=== PATIENT | female | born 1950 | race Caucasian/White ===

== ENCOUNTER 2021-04-21 12:00 | Outpatient (RCR) | payer MEDICARE, OTHER, SELFPAY | END 2021-04-26 14:37 | disposition home or self-care (01) | LOC: HO.PT 12:00 | PROVIDERS: Visit Provider Family Medicine | DX: M72.2 Plantar fascial fibromatosis (principal) | CPT/HCPCS: 97033; 97035; 97110; 97140; 97161; 97535 ==

== ENCOUNTER 2023-02-21 10:42 | Outpatient (REF) | payer MEDICARE, OTHER, SELFPAY ==
--- NOTE | ~2023-02-21 | MM_ITS ---
EXAMINATION: MM SCREENING DIGITAL BREAST TOMOSYNTHESIS, BILATERAL CLINICAL INFORMATION: Screening. Asymptomatic. The lifetime risk of breast cancer based on the Tyrer-Cuzick Model is 3.1%. COMPARISON: Mammography: This study is compared with the only prior study [id number]. TECHNIQUE: Digital breast tomosynthesis is performed in both the craniocaudal and mediolateral oblique views along with computer-aided detection (CAD). Synthesized 2D images are generated from the tomosynthesis. FINDINGS: There are scattered areas of fibroglandular density (ACR BI-RADS breast composition Category b). There are no significant masses, abnormal calcifications, or other abnormalities. MM/MM tomosynthesis screening BI IMPRESSION: No mammographic evidence of malignancy. ASSESSMENT: BI-RADS BI-RADS 1 - Negative RECOMMENDATION: Routine annual mammography screening. 1 year F/U This examination should not preclude the clinical evaluation of a suspicious palpable abnormality. This patient's information was entered into a reminder system with a target due date for their next mammogram.
== END 2023-02-21 10:43 | disposition home or self-care (01) ==
LOC: HO.MAMMO 10:42
PROVIDERS: PCP Family Medicine; Visit Provider Family Medicine
DX: Z12.31 Encounter for screening mammogram for malignant neoplasm of breast (principal); Z13.820 Encounter for screening for osteoporosis; Z78.0 Asymptomatic menopausal state; M81.0 Age-related osteoporosis without current pathological fracture
CPT/HCPCS: 77063; 77067; 77080

== ENCOUNTER → 2023-02-21 10:45 | Outpatient (BNV) | payer MEDICARE, OTHER, SELFPAY | PROVIDERS: PCP Family Medicine; Visit Provider Radiology Diagnostic Radiology | DX: Z12.31 Encounter for screening mammogram for malignant neoplasm of breast (principal) | CPT/HCPCS: 77063; 77067 ==

== ENCOUNTER 2024-02-16 19:00 | Emergency (ER) | payer OTHER, SELFPAY ==
--- NOTE | ~2024-02-16 | XR_ITS ---
EXAMINATION: XR ribs RT min 3V w CXR1V XR hand wrist RT XR knee RT 2V CLINICAL INFORMATION: fall onto ribs, r/o fracture fall onto right knee COMPARISON: None. TECHNIQUE: PA view of the chest and multiple oblique views of the right ribs. AP, lateral, oblique and scaphoid views of the right wrist, 4 images. AP and lateral views of the right knee, 2 images. FINDINGS: Right Ribs: The lungs are well expanded. No focal consolidation, effusion, edema, or pneumothorax. The cardiomediastinal silhouette is within normal limits for technique. No acute osseous abnormality. No displaced rib fractures. Right wrist: No acute fracture. The carpal rows are appropriately aligned. Joint spaces are maintained. Alignment is anatomic. No erosions or soft tissue calcifications. Right knee: No evidence of acute fracture. Alignment is anatomic. No significant effusion or soft tissue swelling. Mild chondrocalcinosis. XR/XR ribs RT min 3V w CXR1V IMPRESSION: 1. No acute pulmonary disease. No displaced rib fractures. 2. No acute fracture or malalignment of the right wrist or right knee.
--- NOTE | ~2024-02-16 | XR_ITS ---
EXAMINATION: XR ribs RT min 3V w CXR1V XR hand wrist RT XR knee RT 2V CLINICAL INFORMATION: fall onto ribs, r/o fracture fall onto right knee COMPARISON: None. TECHNIQUE: PA view of the chest and multiple oblique views of the right ribs. AP, lateral, oblique and scaphoid views of the right wrist, 4 images. AP and lateral views of the right knee, 2 images. FINDINGS: Right Ribs: The lungs are well expanded. No focal consolidation, effusion, edema, or pneumothorax. The cardiomediastinal silhouette is within normal limits for technique. No acute osseous abnormality. No displaced rib fractures. Right wrist: No acute fracture. The carpal rows are appropriately aligned. Joint spaces are maintained. Alignment is anatomic. No erosions or soft tissue calcifications. Right knee: No evidence of acute fracture. Alignment is anatomic. No significant effusion or soft tissue swelling. Mild chondrocalcinosis. XR/XR hand wrist RT IMPRESSION: 1. No acute pulmonary disease. No displaced rib fractures. 2. No acute fracture or malalignment of the right wrist or right knee.
--- NOTE | ~2024-02-16 | XR_ITS ---
EXAMINATION: XR ribs RT min 3V w CXR1V XR hand wrist RT XR knee RT 2V CLINICAL INFORMATION: fall onto ribs, r/o fracture fall onto right knee COMPARISON: None. TECHNIQUE: PA view of the chest and multiple oblique views of the right ribs. AP, lateral, oblique and scaphoid views of the right wrist, 4 images. AP and lateral views of the right knee, 2 images. FINDINGS: Right Ribs: The lungs are well expanded. No focal consolidation, effusion, edema, or pneumothorax. The cardiomediastinal silhouette is within normal limits for technique. No acute osseous abnormality. No displaced rib fractures. Right wrist: No acute fracture. The carpal rows are appropriately aligned. Joint spaces are maintained. Alignment is anatomic. No erosions or soft tissue calcifications. Right knee: No evidence of acute fracture. Alignment is anatomic. No significant effusion or soft tissue swelling. Mild chondrocalcinosis. XR/XR knee RT 2V IMPRESSION: 1. No acute pulmonary disease. No displaced rib fractures. 2. No acute fracture or malalignment of the right wrist or right knee.
[2024-02-16 19:12] VITALS: BP 157/68; PULSE 75; RESP 16; TEMP 37.2; O2SAT 100; BMI 24.1
--- NOTE | 2024-02-16 21:26 | ED_ITS ---
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 landed on the concrete on her right side complaining of pain in the right chest right wrist and right knee no loss of consciousness no cough patient had a x-ray done of the right ribs knee and right hand which was negative for any fracture prior to this patient did not have much pain Related Data Previous Rx's ?Medication ?Instructions ?Recorded ibuprofen 600 mg tablet 600 mg PO Q6H PRN fever or pain 02/16/24 #30 tabs oxycodone-acetaminophen 5 mg-325 1 tab PO Q6H PRN pain #20 tabs 02/16/24 mg tablet (Percocet) Allergies Allergy/AdvReac Type Severity Reaction Status Date / Time No Known Allergies Allergy Verified 02/16/24 19:17 Review of Systems Review of Systems: Yes all other systems are reviewed and are negative [facility] Social History Social History Advance Directives: No Advance Directives Information Provided: Yes Do you have a plan to hurt others: No Plan Physical Exam Vital Signs: Vital Signs: Last Vital Signs Temp 98.9 F 02/16/24 19:12 Pulse 75 02/16/24 19:12 Resp 16 02/16/24 19:12 BP 157/68 H 02/16/24 19:12 Pulse Ox 100 02/16/24 19:12 O2 Del Method Room Air 02/16/24 19:12 BMI result Body Mass Index 24.1 Appearance: Alert. Oriented X3. No acute distress. Eyes: PERRLA, No Nystagmus ENT: Pharynx normal. Oral Mucosa moist Neck: Normal inspection. Neck supple. CVS: Normal heart rate and rhythm. Pulses normal. Respiratory: No respiratory distress. Equal air entry bilateral, no wheezing/rales/rhonchi tenderness right lower rib+ no splinting Abdomen: Soft and nontender. Bowel sounds are present, no mass palpable, no CVA tenderness Skin: Skin warm and dry. Normal skin color. Normal skin turgor. Extremities: No lower extremity edema. No calf tenderness soft tissue swelling right and right hand good range of movement no effusion no bony tenderness Neuro: Oriented X 3. Medications Administered Discontinued Medications Generic Name Dose Route Start Last Admin Trade Name Freq PRN Reason Stop Dose Admin Oxycodone HCl 10 mg 02/16/24 21:41 02/16/24 22:23 Oxycodone Hcl Immed Release 5 Mg Tablet PO 02/16/24 21:42 10 mg ONCE ONE Administration Medical Decision Making Medical Decision Making [facility] Narrative: Patient after minor fall complaining of right rib pain right knee and right wrist x-rays of the ribs right knee and right and is negative for fracture will prescribe pain medication advised to follow up with PCP Independent Interpretation I performed an independent interpretation of an: Plain X-Ray Radiology Impression Discussion of test interpretation with radiology: I have reviewed the radiologist's reading. Discharge Plan Discharge Clinical Impression: Contusion of rib on right side Patient Disposition: Home, Self-Care Instructions: Rib Contusion (ED) Additional Instructions: Take pain medication as prescribed Your x-rays are negative for fracture of the ribs, knee and the wrist Prescriptions: New oxycodone-acetaminophen [Percocet] 5-325 mg tablet 1 tab PO Q6H PRN (Reason: pain) Qty: 20 0RF Rx Instructions: Partial Fill upon patient request. ibuprofen 600 mg tablet 600 mg PO Q6H PRN (Reason: fever or pain) Qty: 30 0RF Print Language: Belarusian
--- OUTSIDE RECORDS SUMMARY | 2024-02-16 21:57 | XMS_ITS | Continuity of Care Document ---
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 Name Role Phone Shara Ibrahim MD Primary Care Physician Encounter [facility] [place] Date(s): 12/22/20 - 01/23/[address] [id number] Attending Physician: Nancy De Oliveira MD Admitting Physician: Nancy De Oliveira MD Referring Physician: Nancy De Oliveira MD Allergies, Adverse Reactions, Alerts Substance Reaction Severity Status NKA Active Medications atenolol 50 mg oral tablet 1 tablet = 50 mg, By Mouth, Daily, 0 Refills, Maintenance Start Date: 05/22/11 Status: Ordered Synthroid 0.075 mg oral tablet 1 tablet = 0.075 mg, By Mouth, Daily, 0 Refills, Maintenance Start Date: 05/22/11 Status: Ordered zolpidem 10 mg oral tablet 1 tablet = 10 mg, By Mouth, Daily at bedtime, 0 Refills, Maintenance Start Date: 05/22/11 Status: Ordered
[2024-02-16] MEDS: oxyCODONE HCl Immed Release 5 MG TABLET 10 MG PO (22:23)
[2024-02-16 23:06] VITALS: BP 157/68; PULSE 75; RESP 16; TEMP 37.2; O2SAT 100
== END 2024-02-16 23:06 | disposition home or self-care (01) ==
PROVIDERS: Emergency Provider Internal Medicine; PCP Family Medicine
DX: S20.211A Contusion of right front wall of thorax, initial encounter (principal); W01.0XXA Fall on same level from slipping, tripping and stumbling without subsequent striking against object, initial encounter; Y93.F9 Activity, other caregiving; Y92.9 Unspecified place or not applicable; Y99.0 Civilian activity done for income or pay
CPT/HCPCS: 71101; 73110; 73130; 73560; 99283; 99284

== ENCOUNTER 2024-03-02 20:51 | Inpatient (IN) | payer MEDICARE, OTHER, SELFPAY ==
--- NOTE | ~2024-03-02 | XR_ITS ---
EXAMINATION: XR CHEST CLINICAL INFORMATION: Shortness of breath. COMPARISON: 02/16/2024 TECHNIQUE: Frontal view of the chest was obtained. FINDINGS: The cardiomediastinal silhouette is within normal limits and stable. There is no focal lung consolidation or pleural effusions. The bony structures and soft tissues are unremarkable. XR/XR chest 1V IMPRESSION: No evidence for active cardiopulmonary disease.
--- NOTE | ~2024-03-02 | CT_ITS ---
EXAMINATION: CT HEAD WITHOUT CONTRAST CLINICAL INFORMATION: Dated blood pressure. Blurred vision. COMPARISON: None available. TECHNIQUE: Contiguous axial imaging was performed from the skull base to vertex without intravenous administration of contrast. This CT examination was performed using dose optimization techniques as appropriate, variously including the following: *Automated exposure control *Adjustment of mA and/or kV according to patient size (this includes techniques or standardized protocols for targeted exams where dose is matched to indication/reason for exam; i.e. extremities or head) *Use of iterative reconstruction technique DLP: 542 mGy-cm FINDINGS: The lateral, third and fourth ventricles are normally outlined. The cortical sulci and basal cisterns are normally outlined as well. There is no acute territorial defect, hemorrhage or midline shift. The extra-axial spaces are unremarkable. Calvarium/scalp: Intact. Maxillofacial sinuses and mastoids: Clear as visualized CT/CT head/brain wo IV con IMPRESSION: No acute intracranial pathology.
[2024-03-02 21:17] VITALS: BP 182/86; PULSE 68; RESP 16; TEMP 36.7; O2SAT 99; BMI 21.1
[2024-03-02 21:50] VITALS: BP 170/76; PULSE 62; RESP 15; TEMP 36.7; O2SAT 98
--- NOTE | 2024-03-02 21:54 | PC.NURSE ---
Patient very concerned she might be having a heart attack or stroke, however patient states she has been doing a lot of gardening outside the past few days and thinks she might also have heat stroke, placed on security monitor during this RN's initial assessment, provider made aware of patient's feelings. Provider current at bedside.
--- NOTE | 2024-03-02 22:00 | ECG_ITS ---
Test Reason : NURO SYMPTOMS Blood Pressure : / mmHG Vent. Rate : 066 BPM Atrial Rate : 066 BPM P-R Int : 180 ms QRS Dur : 092 ms QT Int : 426 ms P-R-T Axes : 062 006 015 degrees QTc Int : 446 ms Normal sinus rhythm Normal ECG No previous ECGs available Referred By: Angela Drake Electronically Signed By:PARISH REEVES MD
--- NOTE | 2024-03-02 22:11 | ED_ITS ---
HPI - Neuro Symptoms/Deficit General Chief Complaint: Neuro Symptoms/Deficit Stated Complaint: blurred vision/headache/tingling everywhere Time Seen by Provider: 03/02/24 21:44 Source: patient Mode of arrival: ambulatory Limitations: no limitations History of Present Illness ED Provider: Dr. Angela Drake HPI Narrative: Patient comes to the emergency room complaining of now 4 hours of blurred vision, headache, generalized malaise, episode of nausea and vomiting, fatigue, feeling all over the body. Patient states that earlier today she was feeling well, she was working outside today. Patient believes that she worked hard for a prolonged period time out in the heat. At this time, patient states that she is feels tired. No motor weakness anywhere at any time today. Patient states that she sees haziness around objects but she can still see fairly well. Patient drove herself to the emergency room. Related Data Previous Rx's ?Medication ?Instructions ?Recorded ibuprofen 600 mg tablet 600 mg PO Q6H PRN fever or pain 02/16/24 #30 tabs oxycodone-acetaminophen 5 mg-325 1 tab PO Q6H PRN pain #20 tabs 02/16/24 mg tablet (Percocet) Allergies Allergy/AdvReac Type Severity Reaction Status Date / Time No Known Allergies Allergy Verified 03/02/24 21:21 Review of Systems 2 Review of Systems: Constitutional : No Weight loss, No Fever, No Chills, No Night Sweats, complaining of fatigue and generalized malaise ENT/Mouth : No Hearing loss, No Ear Pain, No Nasal Congestion, No Sinus Pain, Hoarseness, No sore throat, No Rhinorrhea, No Swallowing Difficulty Eyes: No Eye Pain, No Swelling, No Redness, No Foreign Body, No Discharge, complaining of no new vision/or surrounding objects Cardiovascular : No Chest Pain, No SOB, No Dyspnea on Exertion, No Orthopnea, No Edema, No Palpitations Respiratory : No Cough, No Sputum, No Wheezing, No Smoke Exposure, No Dyspnea Gastrointestinal : No Nausea, No Vomiting, No Diarrhea, No Constipation, No abdominal Pain, No Hematochezia, No Melena Genitourinary : no irregular bleeding, No Dysuria, No Urinary Frequency, No Hematuria, No Urinary Incontinence, No Urgency, No Flank Pain, No Urinary Flow Changes, No Hesitancy Musculoskeletal : No joint pain, No Myalgias, No Joint Swelling Skin : No Skin Lesions, No rash Neuro : No Weakness, No Numbness, complaining of tingling all over her body No Loss of Consciousness, No Dizziness, No Headache Psych : No Anxiety/Panic, No Depression, No SI/HI/AH/VH, No Social Issues, Heme/Lymph: No Bruising, No Bleeding,No Lymphadenopathy Endocrine : No Polyuria, No Polydipsia, No Temperature Intolerance [facility] Past Medical History Medical History (Updated 03/03/24 @ 00:23 by Angela Drake MD) Hypothyroidism Social History Social History Smoked in Last 30 Days: No Use of substances other than those prescribed or required for medical reasons: No Advance Directives: No Advance Directives Information Provided: No Physical Exam 2 Vital Signs: Vital Signs: Last Vital Signs Temp 97.8 F 03/02/24 23:38 Pulse 68 03/02/24 23:38 Resp 15 03/02/24 23:38 BP 152/63 H 03/02/24 23:38 Pulse Ox 97 03/02/24 23:38 O2 Del Method Room Air 03/02/24 23:38 BMI result Body Mass Index 21.1 Const: Other: Appearance: Alert. Oriented X3. No acute distress. Well-appearing Eyes: Pupils equal, round and reactive to light. ENT: Pharynx normal. Neck: Normal inspection. Neck supple. No lymph nodes noted. No crepitus CVS: Normal heart rate and rhythm. Pulses normal. Normal S1 and S2 Respiratory: No respiratory distress. Breath sounds normal. No Wheezing. No rales Abdomen: Soft and nontender. No rigidity. No distention. Skin: Skin warm and dry. Normal skin color. Normal skin turgor. Extremities: No lower extremity edema. No Lacerations. No Rash Neuro: Oriented X 3. No motor deficit. No sensory deficit. Moving all extremities. No slurred speech. CN 2 through 12 grossly intact Psych: calm, cooperative, normal affect Course Course Course Narrative: -patient's NIH score is 0. Patient is neurologically intact -all of patient's labs and imaging pending -it is possible that patient may be affected by overheating/heat stroke, versus hypertension -patient receiving IV fluids -patient's symptoms are not consistent with any neurological pattern, CVA/TIA is not suspected at this time Medications Administered Discontinued Medications Generic Name Dose Route Start Last Admin Trade Name Tray PRN Reason Stop Dose Admin Acetaminophen 975 mg 03/02/24 22:10 03/02/24 22:36 Acetaminophen 325 Mg Tablet PO 03/02/24 22:11 975 mg ONCE ONE Administration Sodium Chloride 1,000 mls @ 999 mls/hr 03/02/24 22:00 03/02/24 22:36 Ns IVCONT 03/02/24 23:00 999 mls/hr .Q1H1M ONE Administration Ondansetron HCl 4 mg 03/02/24 22:00 03/02/24 22:36 Ondansetron Hcl 4 Mg/2 Ml Vial IVPUSH 03/02/24 22:01 4 mg ONCE ONE Administration Medical Decision Making Medical Decision Making [facility] Narrative: -my interpretation of CT scan, no obvious abnormality, no intracranial bleed. -my interpretation of EKG, normal sinus rhythm, heart rate 66, no ST segment depression or elevation, nonspecific T-wave inversion in lead 3, QTC 446 -my interpretation of labs, slightly anemic with a hemoglobin of 11.6, otherwise unremarkable, chemistry shows a sodium level of 125, BNP 132, TSH 0.12 with a normal free T4 of 1.13 alcohol novel negative -patient came in with an elevated blood pressure, states that she has never had hypertensive episodes before, states that she usually runs lower blood pressures without any medications. -last blood pressure was 152/63, patient no longer having headache. -I discussed the labs and imaging with the patient. Patient states that maybe she drank too much water with the attempt of keeping hydrated, may be attributing to patient's hyponatremia. However, we still have the free sodium and osmolality labs pending. -patient's orthostatic vitals blood pressure was negative but patient did feel lightheaded standing up. -urinalysis, urine osmolality, urine sodium pending -because the patient with Dr. Spain from the Medicine team, patient being admitted Differential Diagnosis Differential Diagnoses: The differential diagnosis associated with the presentation includes (UTI, heat stroke, dehydration, hyponatremia) Admission/Observation Consideration of admission/observation: Escalation of care including admission/observation considered Consult Healthcare Provider Management of the patient was discussed with: Lithopress Operator Lab Data [facility] Lab Attestation statement: I reviewed the patient's lab results. 03/02/24 22:08 03/02/24 22:08 Labs: Lab Results 03/02/24 03/02/24 Range/Units 22:08 22:34 WBC 7.0 (4.8-10.8) X10*3/uL RBC 3.98 L (4.20-5.50) X10*6/uL Hgb 11.6 L (12.0-16.0) g/dl Hct 33.1 L (37.0-47.0) % MCV 83.2 (80.0-98.0) fL MCH 29.1 (27.0-33.0) pg MCHC 35.0 (31.0-35.0) g/dl RDW 12.5 (11.0-16.0) % Plt Count 298 (160-400) X10*3/uL MPV 8.7 L (9.4-12.3) fL Immature Gran % (Auto) 0.1 (0.0-0.4) % Neut % (Auto) 66.6 (45-73) % Lymph % (Auto) 26.4 (20-40) % Worth % (Auto) 4.6 (2-11) % Eos % (Auto) 1.0 (0-4) % Baso % (Auto) 1.3 (0-2) % Lymph # (Auto) 1.8 (1.2-4.9) X10*3/uL Worth # (Auto) 0.3 (0.1-1.2) X10*3/uL Eos # (Auto) 0.1 (0.0-0.4) X10*3/uL Baso # (Auto) 0.1 (0.0-0.2) X10*3/uL Abs Immat Gran (auto) 0.01 (0.00-0.03) X10*3/uL Absolute Neuts (auto) 4.7 (2.0-8.3) x10*3/uL Absolute Nucleated RBC 0.000 (0.0-0.012) X10*3/uL Nucleated RBC % (auto) 0.0 (0.0-0.2) /100WBC PT 10.6 L (11.1-13.3) SEC INR 0.9 (0.9-1.1) Sodium 125 L (135-145) mmol/L Potassium 3.8 (3.3-5.1) mmol/L Chloride 94 L (96-108) mmol/L Carbon Dioxide 21 L (22-29) mmol/L Anion Gap 14 (12-20) BUN 13 (9-16) mg/dL Creatinine 0.75 (0.5-1.4) mg/dL Estim Creat Clear Calc 53.6 Estimated GFR > 60 Random Glucose 99 (60-115) mg/dL Calcium 8.5 (8.4-10.2) mg/dL Magnesium 1.9 (1.6-2.6) mg/dL Total Bilirubin 0.6 (0.0-1.0) mg/dL Direct Bilirubin 0.2 (0.0-0.5) mg/dL AST 25 (5-31) U/L ALT 8 (0-31) U/L Alkaline Phosphatase 121 H (39-117) U/L Troponin I High Sens < 2.7 (<3.5-17.0) ng/L B-Natriuretic Peptide 132 H (<100) pg/mL Total Protein 7.2 (6.5-8.0) g/dL Albumin 4.0 (3.5-5.0) g/dL TSH 0.12 L (0.32-4.0) uIU/mL Free T4 1.13 (0.71-1.85) ng/dL Ethyl Alcohol < 10 mg/dL Independent Interpretation I performed an independent interpretation of an: Plain X-Ray and CT Scan Radiology Impression Discussion of test interpretation with radiology: I have reviewed the radiologist's reading. Radiologist Impression: FINDINGS: The lateral, third and fourth ventricles are normally outlined. The cortical sulci and basal cisterns are normally outlined as well. There is no acute territorial defect, hemorrhage or midline shift. The extra-axial spaces are unremarkable. Calvarium/scalp: Intact. Maxillofacial sinuses and mastoids: Clear as visualized CT/CT head/brain wo IV con IMPRESSION: No acute intracranial pathology. The cardiomediastinal silhouette is within normal limits and stable. There is no focal lung consolidation or pleural effusions. The bony structures and soft tissues are unremarkable. XR/XR chest 1V IMPRESSION: No evidence for active cardiopulmonary disease. NIH Stroke Scale Internal: Initial- Upon Arrival Level of Consciousness: Alert Level of Consciousness Questions: Answers both questions correctly Level of Consciousness Commands: Performs both tasks correctly Best Gaze: Normal Visual: No visual loss Facial Palsy: Normal Motor Arm (Right): No drift Motor Arm (Left): No drift Motor Leg (Right): No drift Motor Leg (Left): No drift Limb Ataxia: Absent Sensory: Normal Best Language: No aphasia Dysarthia: Normal Extinction and Inattention: No abnormality Score: 0 Critical Care Time Critical Care Time Critical Care Time: Yes Total Critical Care Time: 60 Attestation: I have personally provided critical care time. Time includes review of lab data, radiology results, discussion with consultants, and monitoring for potential decompensation. Intervention performed as documented. Discharge Plan Discharge Clinical Impression: Acute hyponatremia Patient Disposition: Admitted As Inpatient Print Language: Vietnamese
[2024-03-02 22:14] LABS: MANUAL DIFF FLAG NO
[2024-03-02 22:16] LABS: Basophils Absolute Auto 0.1 X10*3/uL (0.0-0.2); Basophils Percent Auto 1.3 % (0-2); Eosinophils Absolute Auto 0.1 X10*3/uL (0.0-0.4); Hematocrit 33.1 % (37.0-47.0); Hemoglobin 11.6 g/dl (12.0-16.0); Imm Gran Abs Auto 0.01 X10*3/uL (0.00-0.03); Imm Gran Pct Auto 0.1 % (0.0-0.4); Lymphocytes Absolute Auto 1.8 X10*3/uL (1.2-4.9); Lymphocytes Percent Auto 26.4 % (20-40); Mean Corpuscular Hemoglobin 29.1 pg (27.0-33.0); Mean Corpuscular Volume 83.2 fL (80.0-98.0); Mean Platelet Volume 8.7 fL (9.4-12.3); Monocytes Absolute Auto 0.3 X10*3/uL (0.1-1.2); Monocytes Percent Auto 4.6 % (2-11); Neutrophils Absolute Auto 4.7 x10*3/uL (2.0-8.3); Neutrophils Percent Auto 66.6 % (45-73); Platelet Count 298 X10*3/uL (160-400); Red Blood Count 3.98 X10*6/uL (4.20-5.50); Red Cell Distribution Width 12.5 % (11.0-16.0)
[2024-03-02 22:20] LABS: INTERNATIONAL NORM RATIO 0.9 (0.9-1.1); Prothrombin Time 10.6 SEC (11.1-13.3)
[2024-03-02 22:25] VITALS: BP 145/68; PULSE 64
[2024-03-02 22:27] VITALS: BP 174/85; PULSE 64
[2024-03-02 22:28] VITALS: BP 162/89; PULSE 65
[2024-03-02 22:28] LABS: Ethanol < 10 mg/dL
[2024-03-02 22:31] LABS: Alanine Aminotransferase 8 U/L (0-31); Alkaline Phosphatase 121 U/L (39-117); Anion Gap 14 (12-20); Aspartate Amino Transferase 25 U/L (5-31); Bilirubin Direct 0.2 mg/dL (0.0-0.5); Bilirubin Total 0.6 mg/dL (0.0-1.0); Blood Urea Nitrogen 13 mg/dL (9-16); Calcium 8.5 mg/dL (8.4-10.2); Carbon Dioxide 21 mmol/L (22-29); Chloride 94 mmol/L (96-108); Creatinine Clr Calc Pharmacy 53.6; Estimated Glomerular Filt Rate > 60; Glucose Random 99 mg/dL (60-115); Magnesium 1.9 mg/dL (1.6-2.6); Potassium 3.8 mmol/L (3.3-5.1); Sodium 125 mmol/L (135-145); Total Protein 7.2 g/dL (6.5-8.0)
[2024-03-02] MEDS: Acetaminophen 325 MG TABLET 975 MG PO (22:36)
[2024-03-02] MEDS: 0.9 % Sodium Chloride 1,000 ML 999 ML IVCONT (22:36)
[2024-03-02] MEDS: ondansetron HCL 4 MG/2 ML VIAL IVPUSH (22:36)
[2024-03-02 22:39] LABS: Troponin-I High Sensitivity < 2.7 ng/L (<3.5-17.0)
--- NOTE | 2024-03-02 22:41 | PC.NURSE ---
Visual acuity delayed d/t patient's inability to stand up d/t dizziness, IV fluids running.
[2024-03-02 23:05] LABS: B Type Natriuretic Peptide 132 pg/mL (<100)
[2024-03-02 23:20] LABS: TSH reflex Free T4 0.12 uIU/mL (0.32-4.0)
[2024-03-02 23:38] VITALS: BP 152/63; PULSE 68; RESP 15; TEMP 36.6; O2SAT 97
[2024-03-03 00:01] LABS: Free T4 (Free Thyroxine) 1.13 ng/dL (0.71-1.85)
--- NOTE | 2024-03-03 00:46 | P.HPHOSP_ITS ---
History of Present Illness Date of Service: 03/03/24 Attending physician on admission: Filemon Carreno Chief Complaint: Blurry vision Yehuda Rubio is a 73 years old woman with past medical history significant for hypothyroidism presents to the emergency department after she started to have bilateral blurry vision during the afternoon. She stated that she was gardening, coming in and out of the house to drink water -drank around 1.5 pints of water. She also started to experience generalized void tingling and right- sided headache. She also reports some chest pressure, heartburn and one event of vomiting upon arrival to the emergency department. She also commented that she has been having some episodes of diarrhea. Denied focal weakness, speech difficulty or loss of consciousness. She also denied shortness of breath, abdominal pain, fever or chills. Denies history of strokes, diabetes mellitus or hypercholesterolemia. She is not using any diuretics. She only uses levothyroxine 65 mcg daily for hypothyroidism. She denied alcohol consumption, tobacco smoking or illicit drug use. In the ED she was found to have stable vital signs. Her blood pressure has been elevated (max BP 182/86). Most recent blood pressure is 152/63. Heart rate is normal as well as the temperature. Blood workup showed no leukocytosis. Hemoglobin is 11.6. Platelets are normal. INR is 0.9. Sodium is 125. There are no other electrolyte imbalances. Renal function and LFTs are normal. Troponin is < 2.7. BNP is 132. TSH is 0.12. Free T4 is 1.13. CXR is negative. Head CT scan is negative. ECG showed normal sinus rhythm. ED tx: NS 1 L bolus, Zofran 4 mg IV, Tylenol 975 mg PO. Review of Systems 2 Review of Systems: All 12 systems were reviewed and normal except as noted in HPI. [facility] Medical History (Updated 03/03/24 @ 06:41 by Filemon Carreno MD) Hypothyroidism Social History Household Members: None Housing: House Do you presently have visiting nurse or other home services: No Patient Tobacco Use Status: Never used Tobacco Smoked in Last 30 Days: No Use of substances other than those prescribed or required for medical reasons: No Substance Use Type: Caffiene Currently Displaying Signs/Symptoms of Drug Intoxication Withdrawal: No Have you been hit, kicked, punched, or otherwise hurt by someone within the past year? If so, by whom?: No Do you feel safe in your current relationship?: No Current Relationship Is there a partner from a previous relationship who is making you feel unsafe now?: No Are you made to feel afraid or neglected: No Christianity Healthcare Practices: declined Advance Directives: No Advance Directives Information Provided: Yes (pt requesting to wait until rested to fill one out ) Do you have a plan to hurt others: No Plan Recently lost weight without trying: No Eating poorly because of decreased appetite: No Nutrition Risks: No Nutritional Risk Patient : No : No Poor oral hygiene: No Meds Allergies Allergy/AdvReac Type Severity Reaction Status Date / Time No Known Allergies Allergy Verified 03/02/24 21:21 Physical Exam 2 Vital Signs and Narrative: Vital Signs: Last Vital Signs Temp 97.8 F 03/02/24 23:38 Pulse 68 03/02/24 23:38 Resp 15 03/02/24 23:38 BP 152/63 H 03/02/24 23:38 Pulse Ox 97 03/02/24 23:38 O2 Del Method Room Air 03/02/24 23:38 BMI result Body Mass Index 21.1 Constitutional - Awake and Alert, No apparent distress. Cooperative. Pleasant. HEENT - PERRL, EOMI Heart - S1S2, RRR, No murmur. Lungs - Normal lung expansion, Normal respiratory effort, No respiratory distress, CTA bilaterally Abdomen - Nontender. Extremities - no calf tenderness bilaterally, no swelling Skin - Warm/Dry Neurological - Alert & oriented x3. Strength 5/5. Normal speech. Psychological - Appropriate affect Results Labs 03/02/24 22:08 03/03/24 01:02 Labs: Laboratory Results - last 24 hr 03/02/24 03/02/24 22:08 22:34 MCV 83.2 MCH 29.1 MCHC 35.0 RDW 12.5 Plt Count 298 MPV 8.7 L Immature Gran % (Auto) 0.1 Neut % (Auto) 66.6 Lymph % (Auto) 26.4 [place] % (Auto) 4.6 Eos % (Auto) 1.0 Baso % (Auto) 1.3 Lymph # (Auto) 1.8 [place] # (Auto) 0.3 Eos # (Auto) 0.1 Baso # (Auto) 0.1 Abs Immat Gran (auto) 0.01 Absolute Neuts (auto) 4.7 Absolute Nucleated RBC 0.000 Nucleated RBC % (auto) 0.0 PT 10.6 L INR 0.9 Anion Gap 14 Estim Creat Clear Calc 53.6 Estimated GFR > 60 Random Glucose 99 Calcium 8.5 Magnesium 1.9 Total Bilirubin 0.6 Direct Bilirubin 0.2 AST 25 ALT 8 Alkaline Phosphatase 121 H Troponin I High Sens < 2.7 B-Natriuretic Peptide 132 H Total Protein 7.2 Albumin 4.0 TSH 0.12 L Free T4 1.13 Ethyl Alcohol < 10 Imaging Radiologist's Impressions: Impressions Chest X-Ray 03/02/24 22:22 IMPRESSION: No evidence for active cardiopulmonary disease. Head CT 03/02/24 22:28 IMPRESSION: No acute intracranial pathology. Assessment and Plan (1) Acute hyponatremia: Status: Acute (2) Hypothyroidism: Qualifiers: Hypothyroidism type: unspecified Qualified Code(s): E03.9 - Hypothyroidism, unspecified Status: Acute Plan Yehuda Rubio is a 73 y/o woman admitted with: * Blurry vision, tingling sensation, nausea and vomiting, resolved. Likely secondary to acute hyponatremia. Admit to hospitalist service. Received 1L bolus NS. Check urine. Check Na+ level every 4 hours, urine + serum osmolarity and urine sodium. Nephrology consult. * Hypothyroidism. TSH is low, normal free T4. Hold levothyroxine. DVT prophylaxis: SCDs Code status: Full Patient will need hospitalization for at least 2 midnights for hyponatremia management and evaluation. Patient will need close monitoring of sodium level and evaluation by subspecialty. Quality Stroke Does the patient have a stroke diagnosis?: No VTE Prior VTE?: No VTE Risk Level:: Medical - moderate - high VTE Device Contraindication: N/A - Device Ordered VTE Drug Contraindication: Treatment Not Indicated
[2024-03-03 01:03] VITALS: BP 143/87; PULSE 63; RESP 17; TEMP 36.5; O2SAT 98
--- NOTE | 2024-03-03 01:04 | MHC.EDTECH ---
Patient sodium level draw3n and urine sample collected all sent to lab ,vitals taken and patient belonging list done ,No apparent distress noted ,Plan of care continue .
[2024-03-03 01:09] LABS: Appearance Urine Clear; Color Urine Yellow; Glucose Urine UA Negative (Negative); Leukocyte Esterase Urine Negative (Negative); Nitrite Urine Negative (Negative); PH 7.5 (5.0-9.0); Specific Gravity - Urine <= 1.005 (1.005-1.025); Urine Blood Negative (Negative); Urine Ketones Trace mg/dL (Negative); Urine Protein Negative (Neg-Trace)
[2024-03-03 01:19] LABS: Sodium 129 mmol/L (135-145)
[2024-03-03 01:44] LABS: Osmolality Urine 119 mosm/kg (373-1093)
[2024-03-03] MEDS: Melatonin 3 MG TABLET 6 MG PO (02:34)
[2024-03-03 03:42] VITALS: BMI 22.4
[2024-03-03 03:58] VITALS: BP 148/70; PULSE 63; RESP 16; TEMP 36.2; O2SAT 96
[2024-03-03 06:18] LABS: MANUAL DIFF FLAG NO
[2024-03-03 06:39] LABS: Osmolality, Serum 277 mosm/kg (281-305)
[2024-03-03 06:44] LABS: Basophils Absolute Auto 0.1 X10*3/uL (0.0-0.2); Basophils Percent Auto 1.1 % (0-2); Eosinophils Absolute Auto 0.1 X10*3/uL (0.0-0.4); Eosinophils Percent Auto 1.9 % (0-4); Hematocrit 32.5 % (37.0-47.0); Hemoglobin 11.1 g/dl (12.0-16.0); Imm Gran Abs Auto 0.01 X10*3/uL (0.00-0.03); Imm Gran Pct Auto 0.2 % (0.0-0.4); Lymphocytes Absolute Auto 2.7 X10*3/uL (1.2-4.9); Lymphocytes Percent Auto 42.1 % (20-40); Mean Corpuscular HGB Conc 34.2 g/dl (31.0-35.0); Mean Corpuscular Hemoglobin 28.9 pg (27.0-33.0); Mean Corpuscular Volume 84.6 fL (80.0-98.0); Mean Platelet Volume 9.2 fL (9.4-12.3); Monocytes Absolute Auto 0.4 X10*3/uL (0.1-1.2); Monocytes Percent Auto 6.2 % (2-11); Neutrophils Absolute Auto 3.1 x10*3/uL (2.0-8.3); Neutrophils Percent Auto 48.5 % (45-73); Platelet Count 311 X10*3/uL (160-400); Red Blood Count 3.84 X10*6/uL (4.20-5.50); Red Cell Distribution Width 12.7 % (11.0-16.0); White Blood Count 6.3 X10*3/uL (4.8-10.8)
[2024-03-03 06:59] LABS: Anion Gap 10 (12-20); Blood Urea Nitrogen 8 mg/dL (9-16); Calcium 8.4 mg/dL (8.4-10.2); Carbon Dioxide 23 mmol/L (22-29); Chloride 105 mmol/L (96-108); Creatinine Clr Calc Pharmacy 56.6; Estimated Glomerular Filt Rate > 60; Glucose Random 87 mg/dL (60-115); Potassium 3.9 mmol/L (3.3-5.1); Sodium 134 mmol/L (135-145)
[2024-03-03 08:00] VITALS: BP 130/67; PULSE 58; RESP 18; TEMP 36.4; O2SAT 98
--- NOTE | 2024-03-03 08:16 | PHA.MEDREC ---
Pharmacy Consult ? Medication Reconciliation Pharmacy has completed the medication reconciliation. Patient stated they are no longer taking ibuprofen or percocet due acid reflux, also states she has some left at home.
[2024-03-03] MEDS: Levothyroxine Sodium 25 MCG TABLET 62.5 MCG PO (08:17)
[2024-03-03] MEDS: 0.9 % Sodium Chloride Flush 3 ML SYRINGE IVFLUSH (08:18)
--- NOTE | 2024-03-03 08:56 | MHC.CM.PN ---
CM met with Patient at bedside. Patient lives alone in a house and she is functionally independent and plans to drive herself home. PCP is Dr. Nancy De Oliveira.
[2024-03-03 11:41] VITALS: BP 110/57; PULSE 62; RESP 16; TEMP 36.6; O2SAT 99
--- NOTE | 2024-03-03 12:03 | PM.NEUROCN ---
History of Present Illness Data of Consult Service Date: 03/03/24 Primary Care Provider: Nancy De Oliveira MD [facility] Reason for consult: Blurred vision 73 years old woman with previous history of headaches was working in her yd in [employer], came in and noted that everything was black. She slept for a while and then woke up and found that blurry vision was still there. It was like everything was milky or cloudy and she was seeing flashes of lights. She became anxious and nervous and also noted that her hands were tingly and she was having some heart racing. Thinking about stroke she came to emergency room and was admitted. During this time she also had a headache mostly on the left side of the head. Now she was feeling better. Her visual symptom lasted until she came to emergency room. Review of Systems Review of Systems: No recent cold or flu-like symptoms PMFSH Past Medical History Medical History (Updated 03/03/24 @ 12:06 by Dillan Larsen MD) Hypothyroidism Social History Social History Household Members: None Housing: House Do you presently have visiting nurse or other home services: No Patient Tobacco Use Status: Never used Tobacco Smoked in Last 30 Days: No Use of substances other than those prescribed or required for medical reasons: No Substance Use Type: Caffiene Currently Displaying Signs/Symptoms of Drug Intoxication Withdrawal: No Have you been hit, kicked, punched, or otherwise hurt by someone within the past year? If so, by whom?: No Do you feel safe in your current relationship?: No Current Relationship Is there a partner from a previous relationship who is making you feel unsafe now?: No Are you made to feel afraid or neglected: No Taoism Healthcare Practices: declined Advance Directives: No Advance Directives Information Provided: Yes (pt requesting to wait until rested to fill one out ) Do you have a plan to hurt others: No Plan Recently lost weight without trying: No Eating poorly because of decreased appetite: No Nutrition Risks: No Nutritional Risk Patient : No : No Poor oral hygiene: No service: No Meds Allergies Allergy/AdvReac Type Severity Reaction Status Date / Time No Known Allergies Allergy Verified 03/02/24 21:21 Active Medications: Current Medications Acetaminophen (Acetaminophen 325 Mg Tablet) 975 mg PO Q6H PRN PRN Reason: Pain, Mild (Pain Scale 1-3), fever or headache Levothyroxine Sodium (Levothyroxine Sodium 25 Mcg Tablet) 62.5 mcg PO DAILY@0600 [facility] Last Admin: 03/03/24 08:17 Dose: 62.5 mcg Ondansetron HCl (Ondansetron Hcl 4 Mg/2 Ml Vial) 4 mg IVPUSH Q8H PRN PRN Reason: Nausea and Vomiting Sodium Chloride (0.9 % Sodium Chloride Flush 3 Ml Syringe) 3 ml IVFLUSH QSHIFT [facility] Last Admin: 03/03/24 08:18 Dose: 3 ml Home Medications ?Medication ?Instructions ?Recorded ?Confirmed ?Last Taken ?Type levothyroxine 25 mcg tablet 62.5 mcg PO DAILY 03/03/24 03/03/24 03/02/24 History Physical Exam Vital Signs: Vital Signs: Last Vital Signs Temp 97.9 F 03/03/24 11:41 Pulse 62 03/03/24 11:41 Resp 16 03/03/24 11:41 BP 110/57 L 03/03/24 11:41 Pulse Ox 99 03/03/24 11:41 O2 Del Method Room Air 03/03/24 11:41 BMI result Body Mass Index 22.4 Neuro: Other: She is alert and awake with normal spontaneity of speech fluency comprehension and affect. Face is symmetrical. Visual barr are full. There is no pronator drift. Deep tendon reflexes are 1+ with flexor plantars. Speech is normal. Results Labs 03/03/24 05:52 03/03/24 05:52 Labs: Short CBC 03/02/24 03/03/24 Range/Units 22:08 05:52 WBC 7.0 6.3 (4.8-10.8) X10*3/uL Hgb 11.6 L 11.1 L (12.0-16.0) g/dl Hct 33.1 L 32.5 L (37.0-47.0) % Plt Count 298 311 (160-400) X10*3/uL BMP 03/02/24 03/03/24 03/03/24 22:08 01:02 05:52 Sodium 125 L 129 L 134 L Potassium 3.8 3.9 Chloride 94 L 105 Carbon Dioxide 21 L 23 BUN 13 8 L Creatinine 0.75 0.71 Calcium 8.5 8.4 Liver Function 03/02/24 Range/Units 22:08 Total Bilirubin 0.6 (0.0-1.0) mg/dL Direct Bilirubin 0.2 (0.0-0.5) mg/dL AST 25 (5-31) U/L ALT 8 (0-31) U/L Alkaline Phosphatase 121 H (39-117) U/L Albumin 4.0 (3.5-5.0) g/dL Urine 03/03/24 Range/Units 01:02 Urine Color Yellow Urine Appearance Clear Urine pH 7.5 (5.0-9.0) Ur Specific [place] <= 1.005 (1.005-1.025) Urine Protein Negative (Neg-Trace) mg/dL Urine Glucose (UA) Negative (Negative) mg/dL Noncontrast head CT is unremarkable. Assessment and Plan (1) Migraine with aura: Qualifiers: Status migrainosus presence: without status migrainosus Intractability: not intractable Qualified Code(s): G43.109 - Migraine with aura, not intractable, without status migrainosus Status: Acute 73 years old woman who probably had a migraine episode resulting in blurred vision flashes of lights and headache. Rest of the symptoms were probably triggered by anxiety. Examination was nonfocal and head CT was okay. Serum sodium was slightly low but that would not explain her symptoms. She was reassured and educated. At this time no particular intervention was needed. If her symptoms would recur she could CS as an outpatient. (2) Migraine equivalent syndrome: Status: Acute Procedures Date of Service Date of Service: 03/03/24
--- NOTE | 2024-03-03 12:52 | PM.DS ---
DS: Providers Provider Date of Service: 03/03/24 Date of admission: 03/03/24 00:47 Primary care physician: Nancy De Oliveira MD Consults: 03/03/24 01:11 Consult to Nephrology Routine Consulting Provider: [facility] Reason for consultation: Hyponatremia Has provider been notified: No 03/03/24 08:42 Consult to Neurology Routine Consulting Provider: [facility] Reason for consultation: Acute blurry visions Has provider been notified: No DS: Diagnosis Discharge Diagnosis (1) Migraine with aura: Status: Acute (2) Migraine equivalent syndrome: Status: Acute DS: Summary Hospital Course Hospital Course: Chief Complaint: Blurry vision Yehuda Rubio is a 73 years old woman with past medical history significant for hypothyroidism presents to the emergency department after she started to have bilateral blurry vision during the afternoon. She stated that she was gardening, coming in and out of the house to drink water -drank around 1.5 pints of water. She also started to experience generalized void tingling and right-sided headache. She also reports some chest pressure, heartburn and one event of vomiting upon arrival to the emergency department. She also commented that she has been having some episodes of diarrhea. Denied focal weakness, speech difficulty or loss of consciousness. She also denied shortness of breath, abdominal pain, fever or chills. Denies history of strokes, diabetes mellitus or hypercholesterolemia. She is not using any diuretics. She only uses levothyroxine 65 mcg daily for hypothyroidism. She denied alcohol consumption, tobacco smoking or illicit drug use. In the ED she was found to have stable vital signs. Her blood pressure has been elevated (max BP 182/86). Most recent blood pressure is 152/63. Heart rate is normal as well as the temperature. Blood workup showed no leukocytosis. Hemoglobin is 11.6. Platelets are normal. INR is 0.9. Sodium is 125. There are no other electrolyte imbalances. Renal function and LFTs are normal. Troponin is < 2.7. BNP is 132. TSH is 0.12. Free T4 is 1.13. CXR is negative. Head CT scan is negative. ECG showed normal sinus rhythm. ED tx: NS 1 L bolus, Zofran 4 mg IV, Tylenol 975 mg PO. Hospital course: The patient presented with transient blurry vision, and work-up revealed hyponatremia with a sodium level of 125. She reported drinking over a gallon of water due to the heat and working in her garden. A head CT showed no acute findings. She was observed overnight and did not have any other issues. Her sodium level has risen to 134. She was seen by the neurologist, who thought her blurry vision was likely related to an episode of migraine and recommended seeing her in the office. As for the hyponatremia, we believe it is related to excessive water drinking. Her level is now normal following hydration and water restriction. She will have a repeat sodium level later this week and follow up with the temperature regulator pyrometer on outpatient basis. fianal diagnoses: blurry vision Hyponatremia Time Attestation Discharge Coordination Time (in mins): 35 Quality: Safe Use of Opioids Does Pt have an Active Cancer Diagnosis on the Problem List?: No Quality: Stroke Does the patient have a stroke diagnosis?: No Physical Exam Vital Signs: Vital Signs: Last Vital Signs Temp 97.9 F 03/03/24 11:41 Pulse 62 03/03/24 11:41 Resp 16 03/03/24 11:41 BP 110/57 L 03/03/24 11:41 Pulse Ox 99 03/03/24 11:41 O2 Del Method Room Air 03/03/24 11:41 BMI result Body Mass Index 22.4 DS: Data Data Completed and Pending Labs on day of discharge: Laboratory Results - last 24 hr 03/02/24 03/02/24 03/03/24 22:08 22:34 01:02 WBC 7.0 RBC 3.98 L Hgb 11.6 L Hct 33.1 L MCV 83.2 MCH 29.1 MCHC 35.0 RDW 12.5 Plt Count 298 MPV 8.7 L Immature Gran % (Auto) 0.1 Neut % (Auto) 66.6 Lymph % (Auto) 26.4 [place] % (Auto) 4.6 Eos % (Auto) 1.0 Baso % (Auto) 1.3 Lymph # (Auto) 1.8 [place] # (Auto) 0.3 Eos # (Auto) 0.1 Baso # (Auto) 0.1 Abs Immat Gran (auto) 0.01 Absolute Neuts (auto) 4.7 Absolute Nucleated RBC 0.000 Nucleated RBC % (auto) 0.0 PT 10.6 L INR 0.9 Sodium 125 L 129 L Potassium 3.8 Chloride 94 L Carbon Dioxide 21 L Anion Gap 14 BUN 13 Creatinine 0.75 Estim Creat Clear Calc 53.6 Estimated GFR > 60 Random Glucose 99 Osmolality Calcium 8.5 Magnesium 1.9 Total Bilirubin 0.6 Direct Bilirubin 0.2 AST 25 ALT 8 Alkaline Phosphatase 121 H Troponin I High Sens < 2.7 B-Natriuretic Peptide 132 H Total Protein 7.2 Albumin 4.0 TSH 0.12 L Free T4 1.13 Urine Color Yellow Urine Appearance Clear Urine pH 7.5 Ur Specific [place] <= 1.005 Urine Protein Negative Urine Glucose (UA) Negative Urine Ketones Trace Urine Blood Negative Urine Nitrite Negative Ur Leukocyte Esterase Negative Urine Osmolality 119 L Ur Random Sodium 41.0 Ethyl Alcohol < 10 03/03/24 03/03/24 05:52 08:11 WBC 6.3 RBC 3.84 L Hgb 11.1 L Hct 32.5 L MCV 84.6 MCH 28.9 MCHC 34.2 RDW 12.7 Plt Count 311 MPV 9.2 L Immature Gran % (Auto) 0.2 Neut % (Auto) 48.5 Lymph % (Auto) 42.1 H [place] % (Auto) 6.2 Eos % (Auto) 1.9 Baso % (Auto) 1.1 Lymph # (Auto) 2.7 [place] # (Auto) 0.4 Eos # (Auto) 0.1 Baso # (Auto) 0.1 Abs Immat Gran (auto) 0.01 Absolute Neuts (auto) 3.1 Absolute Nucleated RBC 0.000 Nucleated RBC % (auto) 0.0 PT INR Sodium 134 L Potassium 3.9 Chloride 105 Carbon Dioxide 23 Anion Gap 10 L BUN 8 L Creatinine 0.71 Estim Creat Clear Calc 56.6 Estimated GFR > 60 Random Glucose 87 Osmolality 277 L Calcium 8.4 Magnesium Total Bilirubin Direct Bilirubin AST ALT Alkaline Phosphatase Troponin I High Sens B-Natriuretic Peptide Total Protein Albumin TSH Free T4 Urine Color Urine Appearance Urine pH Ur Specific [place] Urine Protein Urine Glucose (UA) Urine Ketones Urine Blood Urine Nitrite Ur Leukocyte Esterase Urine Osmolality Ur Random Sodium 22.0 Ethyl Alcohol Discharge Plan Discharge Anticipated Discharge Date/Time: 03/03/24 12:47 Patient Disposition: Home, Self-Care Discharge Diagnosis: Transient blury vision, acute hyponatremia Referrals: Nancy De Oliveira MD [Primary Care Provider] - 1 Week Discharge Medications: Continued levothyroxine 25 mcg tablet 62.5 mcg PO DAILY Discharge Orders: Discharge Order (Routine); Ordered 03/03/24 Ordered By: Sourav Callahan Diet: Advance to usual diet Activity on Discharge: As tolerated Stand Alone Forms: Patient Portal Discharge page Print Language: Martiniquais Care Plan Goals: recovery from low sodium level and blurry vision Health Concerns: blury vision Hyponatremia (low sodium level) Plan of Treatment: Do not drink water to exces ie no more than 1800 cc a day follow up with your Doctor in a week you will have repeat lab done later this week Assessment: see above Discharge Date/Time: 03/03/24 14:15
--- NOTE | 2024-03-03 13:02 | MHC.CM.PN ---
Patient has been medically cleared for dc to home today, self care.
--- NOTE | 2024-03-03 13:11 | PM.CNNEP ---
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 She stated that she was gardening, coming in and out of the house to drink water -drank around 1.5 pints of water. She also started to experience generalized void tingling and right-sided headache. She also reports some chest pressure, heartburn and one event of vomiting upon arrival to the emergency department. She also commented that she has been having some episodes of diarrhea. Denied focal weakness, speech difficulty or loss of consciousness. She also denied shortness of breath, abdominal pain, fever or chills. Denies history of strokes, diabetes mellitus or hypercholesterolemia. She is not using any diuretics. She only uses levothyroxine 65 mcg daily for hypothyroidism. She denied alcohol consumption, tobacco smoking or illicit drug use. Blood workup showed Sodium of 125. Renal function and LFTs are normal. Troponin is < 2.7. BNP is 132. TSH is 0.12. Free T4 is 1.13. CXR is negative. Head CT scan is negative. ECG showed normal sinus rhythm. She was admitted for further management. Nephrology has been consulted to assist in her clinical management during her current hospital stay Review of Systems Review of Systems Yes all other systems are reviewed and are negative PMFSH Past Medical History Medical History (Updated 03/03/24 @ 12:06 by Dillan Larsen MD) Hypothyroidism Social History Social History Household Members: None Housing: House Do you presently have visiting nurse or other home services: No Patient Tobacco Use Status: Never used Tobacco Smoked in Last 30 Days: No Use of substances other than those prescribed or required for medical reasons: No Substance Use Type: Caffiene Currently Displaying Signs/Symptoms of Drug Intoxication Withdrawal: No Have you been hit, kicked, punched, or otherwise hurt by someone within the past year? If so, by whom?: No Do you feel safe in your current relationship?: No Current Relationship Is there a partner from a previous relationship who is making you feel unsafe now?: No Are you made to feel afraid or neglected: No Buddhist Healthcare Practices: declined Advance Directives: No Advance Directives Information Provided: Yes (pt requesting to wait until rested to fill one out ) Do you have a plan to hurt others: No Plan Recently lost weight without trying: No Eating poorly because of decreased appetite: No Nutrition Risks: No Nutritional Risk Patient : No : No Poor oral hygiene: No service: No Meds Allergies Allergy/AdvReac Type Severity Reaction Status Date / Time No Known Allergies Allergy Verified 03/02/24 21:21 Active Medications: Current Medications Acetaminophen (Acetaminophen 325 Mg Tablet) 975 mg PO Q6H PRN PRN Reason: Pain, Mild (Pain Scale 1-3), fever or headache Levothyroxine Sodium (Levothyroxine Sodium 25 Mcg Tablet) 62.5 mcg PO DAILY@0600 [facility] Last Admin: 03/03/24 08:17 Dose: 62.5 mcg Ondansetron HCl (Ondansetron Hcl 4 Mg/2 Ml Vial) 4 mg IVPUSH Q8H PRN PRN Reason: Nausea and Vomiting Sodium Chloride (0.9 % Sodium Chloride Flush 3 Ml Syringe) 3 ml IVFLUSH QSHIFT [facility] Last Admin: 03/03/24 08:18 Dose: 3 ml Home Medications ?Medication ?Instructions ?Recorded ?Confirmed ?Last Taken ?Type levothyroxine 25 mcg tablet 62.5 mcg PO DAILY 03/03/24 03/03/24 03/02/24 History Physical Exam Vital Signs: Last Vital Signs Temp 97.9 F 03/03/24 11:41 Pulse 62 03/03/24 11:41 Resp 16 03/03/24 11:41 BP 110/57 L 03/03/24 11:41 Pulse Ox 99 03/03/24 11:41 O2 Del Method Room Air 03/03/24 11:41 BMI result Body Mass Index 22.4 Const General: comfortable and no acute distress Orientation/consciousness: patient oriented x3 HEENT Head: Yes normocephalic Mouth: Normal oral and palatal mucosa present Eyes EOM: EOMs intact bilaterally Neck Neck: Yes supple Resp Auscultation: clear to auscultation bilaterally Cardio Jugular venous distension: no JVD Rate: regular rate GI Palpation (GI): Soft to palpation Auscultation: normal bowel sounds General: Yes no CVA tenderness Back/Spine/Pelvis Back: no CVA tenderness Skin General skin exam: no rashes or lesions noted Neuro General: patient oriented x3 and moves all extremities Extrem General: Yes no pedal edema Results Lab Results 03/03/24 05:52 03/03/24 05:52 Lab results: Chemistry 03/02/24 03/03/24 03/03/24 22:08 01:02 05:52 Sodium 125 L 129 L 134 L Potassium 3.8 3.9 Carbon Dioxide 21 L 23 BUN 13 8 L Creatinine 0.75 0.71 Calcium 8.5 8.4 Hematology 03/02/24 03/03/24 22:08 05:52 WBC 7.0 6.3 Hgb 11.6 L 11.1 L Plt Count 298 311 Urinalysis 03/03/24 01:02 Urine Color Yellow Urine Appearance Clear Urine pH 7.5 Ur Specific [place] <= 1.005 Urine Protein Negative Urine Glucose (UA) Negative Urine Ketones Trace Urine Blood Negative Urine Nitrite Negative Ur Leukocyte Esterase Negative Urine Studies 03/03/24 01:02 Urine Osmolality 119 L Assessment and Plan (1) Hypothyroidism: Qualifiers: Hypothyroidism type: unspecified Qualified Code(s): E03.9 - Hypothyroidism, unspecified Status: Acute Plan Euvolemic Hyponatremia Urine studies reviewed No renal/liver/ CHF issues No H/O depression/ on anti depressants Serum Na better; CT head/ CXR OK No indication for medication intervention now Fluid restriction 5270-3251 mls/24 hours Repeat labs this Sunday Shall arrange follow up with me if D/Ivan Procedures Date of Service Date of Service: 03/03/24
== END 2024-03-03 14:15 | disposition home or self-care (01) | DRG 641 ==
LOC: HO.ED 03-03 00:23 → HO.EDOVER 03-03 00:55 → HO.IMC 03-03 01:17
PROVIDERS: Admitting Provider Internal Medicine; Emergency Provider Emergency Medicine; PCP Family Medicine; Visit Provider Internal Medicine
DX: E87.1 Hypo-osmolality and hyponatremia (principal); H53.8 Other visual disturbances; E03.9 Hypothyroidism, unspecified; G43.109 Migraine with aura, not intractable, without status migrainosus; Z79.890 Hormone replacement therapy
CPT/HCPCS: 36415; 70450; 71045; 80048; 80076; 80307; 81003; 83735; 83880; 83930; 83935; 84295; 84300; 84439; 84443; 84484; 85025; 85610; 93005; 96361; 96374; 99285; J2405

== ENCOUNTER → 2024-03-02 22:00 | Outpatient (BNV) | payer MEDICARE, OTHER, SELFPAY | PROVIDERS: Admitting Provider Internal Medicine; Emergency Provider Emergency Medicine; PCP Family Medicine; Visit Provider Internal Medicine Cardiovascular Disease | DX: R53.81 Other malaise (principal); R51.9 Headache, unspecified | CPT/HCPCS: 93010 ==

== ENCOUNTER → 2024-03-03 00:47 | Outpatient (BNV) | payer MEDICARE, OTHER, SELFPAY | PROVIDERS: Admitting Provider Internal Medicine; Emergency Provider Emergency Medicine; PCP Family Medicine; Visit Provider Psychiatry & Neurology Neurology | DX: G43.109 Migraine with aura, not intractable, without status migrainosus (principal) | CPT/HCPCS: 99222 ==

== ENCOUNTER → 2024-03-03 00:47 | Outpatient (BNV) | payer MEDICARE, OTHER, SELFPAY | PROVIDERS: Admitting Provider Internal Medicine; Emergency Provider Emergency Medicine; PCP Family Medicine; Visit Provider Internal Medicine Nephrology | DX: E03.9 Hypothyroidism, unspecified (principal) | CPT/HCPCS: 99222 ==

== ENCOUNTER → 2024-03-03 00:47 | Outpatient (BNV) | payer MEDICARE, OTHER, SELFPAY | PROVIDERS: Admitting Provider Internal Medicine; Emergency Provider Emergency Medicine; PCP Family Medicine; Visit Provider Internal Medicine | DX: G43.109 Migraine with aura, not intractable, without status migrainosus (principal) | CPT/HCPCS: 99235; 99499 ==

== ENCOUNTER 2024-03-05 09:57 | Outpatient (REF) | payer MEDICARE, OTHER, SELFPAY ==
[2024-03-05 11:45] LABS: Anion Gap 13 (12-20); Blood Urea Nitrogen 12 mg/dL (9-16); Calcium 9.4 mg/dL (8.4-10.2); Carbon Dioxide 25 mmol/L (22-29); Chloride 106 mmol/L (96-108); Estimated Glomerular Filt Rate > 60; Glucose Fasting 86 mg/dL (60-99); Potassium 4.8 mmol/L (3.3-5.1); Sodium 139 mmol/L (135-145)
== END 2024-03-05 09:58 | disposition home or self-care (01) ==
LOC: HO.LAB 09:57
PROVIDERS: PCP Family Medicine; Visit Provider Internal Medicine
DX: E87.1 Hypo-osmolality and hyponatremia (principal)
CPT/HCPCS: 36415; 80048

== ENCOUNTER → 2024-04-04 09:57 | Outpatient (BNVA) | payer MEDICARE, OTHER, SELFPAY | PROVIDERS: PCP Family Medicine; Visit Provider Internal Medicine Nephrology | DX: E87.1 Hypo-osmolality and hyponatremia (principal); E03.9 Hypothyroidism, unspecified; R07.9 Chest pain, unspecified; R12 Heartburn | CPT/HCPCS: 99212 ==

== ENCOUNTER 2024-04-04 10:00 | Outpatient (AMB) | payer MEDICARE, OTHER, SELFPAY ==
--- NOTE | 2024-04-04 10:04 | HO.NEPHOV_ITS ---
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 She stated that she was gardening, coming in and out of the house to drink water -drank around 1.5 pints of water. She also started to experience generalized void tingling and right- sided headache. She also reports some chest pressure, heartburn and one event of vomiting upon arrival to the emergency department. She also commented that she has been having some episodes of diarrhea. Denied focal weakness, speech difficulty or loss of consciousness. She also denied shortness of breath, abdominal pain, fever or chills. Denies history of strokes, diabetes mellitus or hypercholesterolemia. She is not using any diuretics. She only uses levothyroxine 65 mcg daily for hypothyroidism. She denied alcohol consumption, tobacco smoking or illicit drug use. Blood workup showed Sodium of 125. Renal function and LFTs are normal. Troponin is < 2.7. BNP is 132. TSH is 0.12. Free T4 is 1.13. CXR is negative. Head CT scan is negative. ECG showed normal sinus rhythm. Nephrology saw her and managed her hyponatremia. She is here for follow up [facility] Medical History (Updated 04/04/24 @ 10:37 by Cuate Thomas MD) Hypothyroidism Social History Household Members: None Housing: House Do you presently have visiting nurse or other home services: No Patient Tobacco Use Status: Never used Tobacco Substance Use Type: Caffiene service: No Review of Systems Const All systems reviewed & are unremarkable except as noted in HPI and below Physical Exam Vital Signs: Last Vital Signs Pulse 62 04/04/24 10:05 BP 124/60 04/04/24 10:05 Pulse Ox 98 04/04/24 10:05 Oxygen Delivery Method Room Air 04/04/24 10:05 BMI result Body Mass Index 21.2 Const General: comfortable and no acute distress Orientation/consciousness: patient oriented x3 HEENT Head: Yes normocephalic Mouth: Normal oral and palatal mucosa present Eyes EOM: EOMs intact bilaterally Neck Neck: Yes supple Resp Auscultation: clear to auscultation bilaterally Cardio Jugular venous distension: no JVD Rate: regular rate GI Palpation (GI): Soft to palpation Auscultation: normal bowel sounds General: Yes no CVA tenderness Back/Spine/Pelvis Back: no CVA tenderness Skin General skin exam: no rashes or lesions noted Neuro General: patient oriented x3 and moves all extremities Extrem General: Yes no pedal edema Results Reviewed Nephrology Results: Hgb 11.1 g/dl (12.0-16.0) L 03/03/24 WBC 6.3 X10*3/uL (4.8-10.8) 03/03/24 Plt Count 311 X10*3/uL (160-400) 03/03/24 Sodium 139 mmol/L (135-145) 03/05/24 Potassium 4.8 mmol/L (3.3-5.1) 03/05/24 Chloride 106 mmol/L (96-108) 03/05/24 Carbon Dioxide 25 mmol/L (22-29) 03/05/24 BUN 12 mg/dL (9-16) 03/05/24 Creatinine 0.80 mg/dL (0.5-1.4) 03/05/24 Calcium 9.4 mg/dL (8.4-10.2) 03/05/24 Urine Protein Negative mg/dL (Neg-Trace) 03/03/24 Assessment & Plan Assessment & Plan (1) Hyponatremia: Code(s): E87.1 - Hypo-osmolality and hyponatremia Category: Medical Plan Euvolemic Hyponatremia No renal/liver/ CHF issues No H/O depression/ on anti depressants Serum Na normalized ; CT head/ CXR OK No indication for medication intervention now Fluid restriction 1800 mls/24 hours Labs/ FU ONE year Orders: Orders Blood Urea Nitrogen Today E87.1 - Hypo-osmolality and hyponatremia Creatinine Today E87.1 - Hypo-osmolality and hyponatremia Electrolytes Today E87.1 - Hypo-osmolality and hyponatremia Coding Level of Care Code Est Pt Level 4 (50176) Diagnoses Hyponatremia E87.1
[2024-04-04 10:05] VITALS: BP 124/60; PULSE 62; O2SAT 98; BMI 21.2
== END 2024-04-04 10:42 | disposition home or self-care (01) ==
PROVIDERS: PCP Family Medicine; Visit Provider Internal Medicine Nephrology
DX: E87.1 Hypo-osmolality and hyponatremia (principal)
CPT/HCPCS: 99214

== ENCOUNTER 2024-08-16 11:46 | Emergency (ER) | payer MEDICARE, OTHER, SELFPAY ==
--- NOTE | ~2024-08-16 | CT_ITS ---
CLINICAL HISTORY: fall, left facial strike CT maxillofacial without contrast Comparison: CT/SR - CT HEAD/BRAIN WO IV CON - 03/02/24 22:12 EDT Findings: There are comminuted, mildly displaced fractures of the left lateral orbital wall and left zygomatic arch. There are fractures of the left orbital floor and lateral wall of the left maxillary sinus without significant displacement. Temporomandibular joints are intact. Small air-fluid level within the left maxillary sinus. Tiny pocket of gas within the extraconal space of the left orbit. Visualized intracranial contents are within normal limits. Periodontal abscess associated with the left 2nd maxillary molar and right 2nd mandibular molar. Impacted bilateral mandibular wisdom teeth. No foreign bodies. IMPRESSION: Acute fractures of the left lateral orbital wall, left zygomatic arch, left orbital floor and the lateral wall of the left maxillary sinus. This document has been electronically signed by: Yuliya Hearn MD on 08/16/2024 16:26:42
--- NOTE | ~2024-08-16 | CT_ITS ---
CLINICAL HISTORY: fall with head strike CT cervical spine without contrast Comparison: None Findings: Normal vertebral body alignment. Multilevel degenerative disc disease and facet osteoarthritis. No central canal stenosis. No acute fractures or dislocations. No acute findings on limited view of the intracranial contents. Soft tissues of the neck are normal. Small calcified granuloma within the right upper lobe. No consolidation or pleural effusion. IMPRESSION: No acute findings. This document has been electronically signed by: Yuliya Hearn MD on 08/16/2024 15:59:28
--- NOTE | ~2024-08-16 | CT_ITS ---
CLINICAL HISTORY: fall with head left head strike CT head without contrast Comparison: CT/SR - CT HEAD/BRAIN WO IV CON - 03/02/24 22:12 EDT Findings: No intra-axial mass, midline shift, hydrocephalus, or acute hemorrhage. No significant atrophy-like change or white matter disease. There is a small hematoma within the left maxillary sinus. There are acute fractures of the left lateral orbital wall and left zygomatic arch. Multiple small pockets of gas within the soft tissues adjacent to the left orbit. Body I no the noise Jessie seemingly make it using IMPRESSION: 1. No intracranial hemorrhage. 2. Acute fractures of the left lateral orbital wall and left zygomatic arch. This document has been electronically signed by: Yuliya Hearn MD on 08/16/2024 16:30:52
--- NOTE | ~2024-08-16 | XR_ITS ---
CLINICAL HISTORY: fall with right thumb pain 3 view right hand Comparison: CR/SR - XR HAND WRIST RT - 02/16/24 19:38 EDT Findings: Bones intact. No dislocations. Mild arthritic change. No erosions. No radiopaque foreign body. IMPRESSION: 1. No acute findings This document has been electronically signed by: Yuliya Hearn MD on 08/16/2024 16:29:12
[2024-08-16 12:08] VITALS: BP 142/82; PULSE 72; RESP 20; TEMP 36.3; O2SAT 100; BMI 20.8
--- NOTE | 2024-08-16 12:15 | ED.FALL ---
HPI - Fall General Chief Complaint: Fall Stated Complaint: fall Time Seen by Provider: 08/16/24 14:32 Source: patient Mode of arrival: ambulatory Limitations: no limitations History of Present Illness ED Provider: DR. Davidson HPI Narrative: 73-year-old female came in for evaluation after a mechanical fall patient slipped on ice and fell hitting the left side of her head,+ LOC after she fell, otherwise patient did not have lightheadedness or syncopal episode before the fall, no chest pain, no shortness of breath, no abdominal pain. Patient is complaining of left side headache, left orbital pain, left subconjunctival hemorrhage, right thumb pain. No history of anticoagulation. Related Data Home Medications ?Medication ?Instructions ?Recorded ?Confirmed levothyroxine 25 mcg tablet 62.5 mcg PO DAILY 03/03/24 03/03/24 Allergies Allergy/AdvReac Type Severity Reaction Status Date / Time No Known Allergies Allergy Verified 08/16/24 12:11 Review of Systems Review of Systems: All other systems are reviewed and are negative Constitutional: Reports as per HPI and Reports no additional constitutional complaints Eyes: Reports as per HPI and Reports no additional eye complaints Reports system reviewed and no additional complaints, except as documented Cardiovascular: Reports as per HPI and Reports no additional cardiovascular complaints Respiratory: Reports as per HPI and Reports no additional respiratory complaints Gastrointestinal: Reports as per HPI and Reports no additional gastrointestinal complaints Genitourinary: Reports no additional female genitourinary complaints Musculoskeletal: Reports no additional musculoskeletal complaints Skin/Breast: Reports system reviewed and no additional complaints, except as docu Psychiatric: Reports no additional psychiatric complaints Endocrine: Reports no additional endocrine complaints Hematologic/Lymphatic: Reports no additional hematologic/lymphatic complaints Allergic/Immunologic: Reports no additional allergic/immunologic complaints Reports system reviewed and no additional complaints, except as documented and Reports Abnormal speech present [facility] Past Medical History Medical History Hypothyroidism Social History Social History Household Members: None Housing: House Do you presently have visiting nurse or other home services: No Patient Tobacco Use Status: Never used Tobacco Smoked in Last 30 Days: No Use of substances other than those prescribed or required for medical reasons: No Substance Use Type: Caffiene Advance Directives: No Advance Directives Information Provided: Yes Do you have a plan to hurt others: No Plan service: No Physical Exam Vital Signs: Vital Signs: Last Vital Signs Temp 98.1 F 08/16/24 18:11 Pulse 63 08/16/24 18:11 Resp 14 08/16/24 18:11 BP 145/78 H 08/16/24 18:11 Pulse Ox 98 08/16/24 18:11 O2 Del Method Room Air 08/16/24 18:11 BMI result Body Mass Index 20.8 Vital signs have been reviewed and appear to be correct. Blood pressure elevated. Heart rate normal. Respiratory rate normal. Temperature normal. Oxygen saturation normal. Appearance: Alert. Oriented X3. No acute distress. Head: Normal external exam. Normocephalic. Atraumatic. No Bowen signs noted. No raccoon eyes noted Eyes: Left subconjunctival hemorrhage, tenderness and hematoma around the left eye, PERRLA. EOMI. Conjunctiva and sclera normal. Eyelids normal. ENT: TM's Normal. Pharynx normal. Uvula midline. Moist mucous membranes. No trismus noted. No drooling noted. No muffled voice noted. Neck: Normal inspection. Neck supple. FROM. No adenopathy. Thyroid Normal. No meningeal signs. No neck mass noted. CVS: Normal heart rate and rhythm. Heart sound normal. No murmurs noted. Pulses normal throughout. Respiratory: No respiratory distress. Painless inspiration. Breath sounds normal. No wheezes/rales/rhonchi noted. Chest nontender. No accessory muscle usage noted or decreased air movement noted. Abdomen: Soft and nontender. Bowel sounds normal in all 4 quadrants. No distention noted. No organomegaly noted. No visible injury noted. Back: No CVA tenderness. Full range of motion noted. Skin: Skin warm and dry. Normal skin color. Normal skin turgor. No rashes/lesions/lacerations noted. Extremities: No lower extremity edema. Extremities exhibit normal range of motion. Extremities nontender. Neuro: Oriented X 3. Cranial nerve exam: II-XII are grossly intact No motor deficit. No sensory deficit. Reflexes normal. Course Course Course Narrative: This is a Rapid Medical Examination (RME) performed by Noah Babin PA-C in triage. Full HPI, ROS, assessment and treatment plan per primary provider in the Main ED. 74 yo female here for eval of left sided facial pain s/p slip and fall on ice [employer]. reports falling onto the left side of her face. unknown LOC. not on anticoagulation. has been icing the area for around 1 hour. no OTC pain meds. + AOX3. subconunctival hemorrhage to left eye. no hyphema. EOMS intact w/o entrapment, some pain. swelling noted to left cheek. no palpable skull fracture. Plan: imaging Reevaluation(s) Reevaluation #1: S/p mechanical fall with head injury, await for CT head/face/C-spine result, right hand x-ray, EKG and repeat troponin the case signed out to Dr. Espinal. Time: 15:38 Medications Administered Discontinued Medications Generic Name Dose Route Start Last Admin Trade Name Freq PRN Reason Stop Dose Admin Amoxicillin/Clavulanate Potassium 875 mg 08/16/24 18:32 08/16/24 19:08 Amoxicillin/Potassium Clav 875 Mg Tablet PO 08/16/24 18:33 875 mg ONCE ONE Administration Morphine Sulfate 1 mg 08/16/24 14:45 08/16/24 14:51 Morphine Sulfate 2 Mg/Ml Cartridge IVPUSH 08/16/24 14:46 1 mg ONCE ONE Administration Protocol Morphine Sulfate 4 mg 08/16/24 18:48 08/16/24 19:08 Morphine Sulfate 4 Mg/Ml Cartridge IVPUSH 08/16/24 18:49 4 mg ONCE ONE Administration Protocol Ondansetron HCl 4 mg 08/16/24 18:49 08/16/24 19:08 Ondansetron Hcl 4 Mg/2 Ml Vial IVPUSH 08/16/24 18:50 4 mg ONCE ONE Administration Medical Decision Making Medical Decision Making [facility] Narrative: Patient is status post mechanical fall CT scan of the head showed left orbital lateral wall and zygomatic fracture clinically patient does not have any entrapment of the EOM muscle has troponin leak with delta change but no EKG changes no chest pain CPK normal case discussed Dr. Couch cardiology outpatient follow up Differential Diagnosis Differential Diagnoses: The differential diagnosis associated with the presentation includes (Intracranial bleed, facial fracture, subconjunctival hemorrhage, orbital fracture, cervical spine fracture, right hand fracture, ACS, electrolyte derangement, severe anemia.) Admission/Observation Consideration of admission/observation: Escalation of care including admission/observation considered Lab Data MDM Lab Attestation statement: I reviewed the patient's lab results. 08/16/24 14:40 08/16/24 14:40 Labs: Lab Results 08/16/24 08/16/24 08/16/24 Range/Units 14:40 17:49 20:15 WBC 9.8 (4.8-10.8) X10*3/uL RBC 4.49 (4.20-5.50) X10*6/uL Hgb 13.2 (12.0-16.0) g/dl Hct 39.2 D (37.0-47.0) % MCV 87.3 (80.0-98.0) fL MCH 29.4 (27.0-33.0) pg MCHC 33.7 (31.0-35.0) g/dl RDW 14.0 (11.0-16.0) % Plt Count 374 (160-400) X10*3/uL MPV 8.9 L (9.4-12.3) fL Immature Gran % (Auto) 0.3 (0.0-0.4) % Neut % (Auto) 81.6 H (45-73) % Lymph % (Auto) 13.8 L (20-40) % [place] % (Auto) 3.1 (2-11) % Eos % (Auto) 0.4 (0-4) % Baso % (Auto) 0.8 (0-2) % Lymph # (Auto) 1.4 (1.2-4.9) X10*3/uL [place] # (Auto) 0.3 (0.1-1.2) X10*3/uL Eos # (Auto) 0.0 (0.0-0.4) X10*3/uL Baso # (Auto) 0.1 (0.0-0.2) X10*3/uL Abs Immat Gran (auto) 0.03 (0.00-0.03) X10*3/uL Absolute Neuts (auto) 8.0 (2.0-8.3) x10*3/uL Absolute Nucleated RBC 0.000 (0.0-0.012) X10*3/uL Nucleated RBC % (auto) 0.0 (0.0-0.2) /100WBC PT 10.5 L (10.9-12.4) SEC INR 0.9 (0.9-1.1) Sodium 140 (135-145) mmol/L Potassium 3.9 (3.3-5.1) mmol/L Chloride 107 (96-108) mmol/L Carbon Dioxide 24 (22-29) mmol/L Anion Gap 13 (12-20) BUN 14 (9-16) mg/dL Creatinine 0.77 (0.5-1.4) mg/dL Estim Creat Clear Calc 54.6 Estimated GFR > 60 Random Glucose 96 (60-115) mg/dL Calcium 9.1 (8.4-10.2) mg/dL Magnesium 2.0 (1.6-2.6) mg/dL Total Bilirubin 0.7 (0.0-1.0) mg/dL AST 31 (5-31) U/L ALT 12 (0-31) U/L Alkaline Phosphatase 120 H (39-117) U/L Total Creatine Kinase 73 (26-140) U/L Troponin I High Sens 33.2 H D 80.8 H* D 79.5 H* (<3.5-17.0) ng/L Total Protein 7.8 (6.5-8.0) g/dL Albumin 4.2 (3.5-5.0) g/dL Independent Interpretation I performed an independent interpretation of an: CT Scan Radiology Impression Discussion of test interpretation with radiology: I have reviewed the radiologist's reading. Radiologist Impression: [place] [id number] CT Scan Report Signed Patient: Yehuda Rubio MR#: [id number] : 1950 Acct:[id number] Age/Sex: 73 / F ADM Date: 08/16/24 Loc: HO.ED Attending Dr: Ordering Physician: Hortensia Babin Date of Service: 08/16/24 Procedure(s): CT head/brain wo IV con Accession Number(s): [id number] cc: Hortensia Babin; Nancy De Oliveira MD~ Report Number: [id number]: Total DLP = 602.00 mGy-cm CLINICAL HISTORY: fall with head left head strike CT head without contrast Comparison: CT/SR - CT HEAD/BRAIN WO IV CON - 03/02/24 22:12 EDT Findings: No intra-axial mass, midline shift, hydrocephalus, or acute hemorrhage. No significant atrophy-like change or white matter disease. There is a small hematoma within the left maxillary sinus. There are acute fractures of the left lateral orbital wall and left zygomatic arch. Multiple small pockets of gas within the soft tissues adjacent to the left orbit. Body I no the noise Jessie seemingly make it using IMPRESSION: 1. No intracranial hemorrhage. 2. Acute fractures of the left lateral orbital wall and left zygomatic arch. This document has been electronically signed by: Yuliya Hearn MD on 08/16/2024 16:30:52 Discharge Plan Discharge Clinical Impression: Fall, Elevated troponin, Subconjunctival bleed, Left orbital fracture Patient Disposition: Home, Self-Care Instructions: Facial Fracture (ED), Fall Prevention for Older Adults (ED) Prescriptions: No Action levothyroxine 25 mcg tablet 62.5 mcg PO DAILY Print Language: New Zealander
[2024-08-16 14:44] LABS: MANUAL DIFF FLAG NO
[2024-08-16 14:49] LABS: Basophils Absolute Auto 0.1 X10*3/uL (0.0-0.2); Basophils Percent Auto 0.8 % (0-2); Eosinophils Percent Auto 0.4 % (0-4); Hematocrit 39.2 % (37.0-47.0); Hemoglobin 13.2 g/dl (12.0-16.0); Imm Gran Abs Auto 0.03 X10*3/uL (0.00-0.03); Imm Gran Pct Auto 0.3 % (0.0-0.4); Lymphocytes Absolute Auto 1.4 X10*3/uL (1.2-4.9); Lymphocytes Percent Auto 13.8 % (20-40); Mean Corpuscular HGB Conc 33.7 g/dl (31.0-35.0); Mean Corpuscular Hemoglobin 29.4 pg (27.0-33.0); Mean Corpuscular Volume 87.3 fL (80.0-98.0); Mean Platelet Volume 8.9 fL (9.4-12.3); Monocytes Absolute Auto 0.3 X10*3/uL (0.1-1.2); Monocytes Percent Auto 3.1 % (2-11); Neutrophils Percent Auto 81.6 % (45-73); Platelet Count 374 X10*3/uL (160-400); Red Blood Count 4.49 X10*6/uL (4.20-5.50); White Blood Count 9.8 X10*3/uL (4.8-10.8)
[2024-08-16] MEDS: Morphine Sulfate 2 MG/ML CARTRIDGE 1 MG IVPUSH (14:51)
[2024-08-16 14:55] LABS: INTERNATIONAL NORM RATIO 0.9 (0.9-1.1); Prothrombin Time 10.5 SEC (10.9-12.4)
[2024-08-16 15:01] LABS: Alanine Aminotransferase 12 U/L (0-31); Albumin Level 4.2 g/dL (3.5-5.0); Alkaline Phosphatase 120 U/L (39-117); Anion Gap 13 (12-20); Aspartate Amino Transferase 31 U/L (5-31); Bilirubin Total 0.7 mg/dL (0.0-1.0); Blood Urea Nitrogen 14 mg/dL (9-16); Calcium 9.1 mg/dL (8.4-10.2); Carbon Dioxide 24 mmol/L (22-29); Chloride 107 mmol/L (96-108); Creatinine Clr Calc Pharmacy 54.6; Estimated Glomerular Filt Rate > 60; Glucose Random 96 mg/dL (60-115); Potassium 3.9 mmol/L (3.3-5.1); Sodium 140 mmol/L (135-145); Total Protein 7.8 g/dL (6.5-8.0)
[2024-08-16 15:07] LABS: Troponin-I High Sensitivity 33.2 ng/L (<3.5-17.0)
[2024-08-16 15:12] VITALS: BP 154/79; PULSE 66; RESP 14; TEMP 36.9; O2SAT 99
--- NOTE | 2024-08-16 15:33 | ECG_ITS ---
Test Reason : ELEVATED TROPONIN Blood Pressure : / mmHG Vent. Rate : 066 BPM Atrial Rate : 066 BPM P-R Int : 162 ms QRS Dur : 086 ms QT Int : 428 ms P-R-T Axes : 052 -01 020 degrees QTc Int : 448 ms Normal sinus rhythm Normal ECG When compared with ECG of 02-MAR-2024 22:07, No significant change was found Referred By: Tiara Davidson Electronically Signed By:Trevon Couch
[2024-08-16 16:00] VITALS: BP 148/73; PULSE 64; RESP 14; TEMP 36.7; O2SAT 99
[2024-08-16 18:11] VITALS: BP 145/78; PULSE 63; RESP 14; TEMP 36.7; O2SAT 98
[2024-08-16 18:34] LABS: Troponin-I High Sensitivity 80.8 ng/L (<3.5-17.0)
--- NOTE | 2024-08-16 18:39 | ECG_ITS ---
Test Reason : ELEVATED TROP Blood Pressure : / mmHG Vent. Rate : 069 BPM Atrial Rate : 069 BPM P-R Int : 172 ms QRS Dur : 086 ms QT Int : 406 ms P-R-T Axes : 058 002 010 degrees QTc Int : 435 ms Normal sinus rhythm Nonspecific ST abnormality Abnormal ECG When compared with ECG of 16-AUG-2024 15:43, No significant change was found Referred By: Allen Espinal Electronically Signed By:PARISH REEVES MD
[2024-08-16] MEDS: Amoxicillin/Potassium Clav 875 MG TABLET PO (19:08)
[2024-08-16] MEDS: ondansetron HCL 4 MG/2 ML VIAL IVPUSH (19:08)
[2024-08-16] MEDS: Morphine Sulfate 4 MG/ML CARTRIDGE IVPUSH (19:08)
[2024-08-16 20:45] LABS: Troponin-I High Sensitivity 79.5 ng/L (<3.5-17.0)
[2024-08-16 21:43] VITALS: BP 136/72; PULSE 72; RESP 18; TEMP 36.7; O2SAT 98
== END 2024-08-16 21:45 | disposition home or self-care (01) ==
PROVIDERS: Emergency Medicine; Emergency Provider Internal Medicine; PCP Family Medicine
DX: H11.32 Conjunctival hemorrhage, left eye (principal); S02.842A Fracture of lateral orbital wall, left side, initial encounter for closed fracture; W00.0XXA Fall on same level due to ice and snow, initial encounter; M79.644 Pain in right finger(s); R79.89 Other specified abnormal findings of blood chemistry; Y93.89 Activity, other specified; Y92.9 Unspecified place or not applicable; Y99.9 Unspecified external cause status
CPT/HCPCS: 36415; 70450; 70486; 72125; 73130; 80053; 82550; 83735; 84484; 85025; 85610; 93005; 96374; 96375; 96376; 99285; J2270; J2405

== ENCOUNTER → 2024-08-16 12:13 | Outpatient (BNV) | payer MEDICARE, OTHER, SELFPAY | PROVIDERS: Emergency Provider Emergency Medicine; PCP Family Medicine; Visit Provider Radiology Diagnostic Radiology | DX: S09.90XA Unspecified injury of head, initial encounter (principal); S09.93XA Unspecified injury of face, initial encounter; S19.9XXA Unspecified injury of neck, initial encounter; M79.644 Pain in right finger(s) | CPT/HCPCS: 70450; 70486; 72125; 73130 ==

== ENCOUNTER → 2024-08-16 15:33 | Outpatient (BNV) | payer MEDICARE, OTHER, SELFPAY | PROVIDERS: Emergency Provider Emergency Medicine; PCP Family Medicine; Visit Provider Internal Medicine Cardiovascular Disease | DX: R79.89 Other specified abnormal findings of blood chemistry (principal) | CPT/HCPCS: 93010 ==

== ENCOUNTER 2025-03-03 12:48 | Outpatient (REF) | payer MEDICARE, OTHER, SELFPAY ==
--- NOTE | ~2025-03-03 | MM_ITS ---
EXAMINATION: DXA BONE DENSITY AXIAL HISTORY: Osteoporosis TECHNIQUE: Storm Player Dual energy absorptiometry (DEXA) of the lumbar spine, total left hip, and femoral neck was performed. COMPARISON: Comparison is made with the prior examination dated 02/21/2023. FINDINGS: The bone mineral density of the lumbar spine is 0.792 g/cm2, corresponding to a T-score of -3.2, and a Z-score of -1.0. This is indicative of osteoporosis. This represents a BMD change of 0.3% compared to the prior exam. This is not statistically significant. The bone mineral density of the left total hip is 0.823 g/cm2, corresponding to a T-score of -1.5, and a Z-score of 0.5. This is indicative of osteopenia. This represents a BMD change of -1.3% compared to the prior exam. This is not statistically significant. The bone mineral density of the left femoral neck is 0.815 g/cm2, corresponding to a T-score of -1.6, and a Z-score of 0.5. This is indicative of osteopenia. This represents a BMD change of 3.8% compared to the prior exam. FRACTURE RISK: The FRAX index suggests a ten year probability of major osteoporotic fracture of 8.8%, and of hip fracture 1.6%. MM/XR DEXA axial skeleton IMPRESSION: Based on bone mineral density, and according to World Health Organization (WHO) criteria, the diagnosis is consistent with osteoporosis. Statistically, 68% of repeat scans fall within 1 SD (+/- 0.010 g/cm2 for AP spine L1-L4) and 1 SD (+/- 0.012 g/cm2 for femur total) FRAX is a trademark of the [employer]'s [employer] Metabolic Bone Disease, a World Health Organization (WHO) Collaborating Center. Electronically signed by: Goyo Alston MD 03/03/2025 01:26 PM EDT
--- NOTE | ~2025-03-03 | MM_ITS ---
EXAMINATION: MM SCREENING DIGITAL BREAST TOMOSYNTHESIS, BILATERAL CLINICAL INFORMATION: Screening. Asymptomatic. COMPARISON: February 21, 2023 and October 09, 2014 TECHNIQUE: Digital breast tomosynthesis is performed in both the craniocaudal and mediolateral oblique views along with computer-aided detection (CAD). Synthesized 2D images are generated from the tomosynthesis. FINDINGS: BREAST COMPOSITION: There are scattered areas of fibroglandular density (ACR BI-RADS breast composition Category b). BILATERAL BREASTS: No significant masses, suspicious calcifications or other abnormalities are seen in either breast. MM/MM tomosynthesis screening BI IMPRESSION: BILATERAL BREASTS: Negative, no mammographic evidence of malignancy. Normal interval follow-up is recommended in 12 months. ASSESSMENT: BI-RADS 1 - Negative RECOMMENDATION: Routine annual mammography screening. FOLLOW-UP: 1 year F/U This examination should not preclude the clinical evaluation of a suspicious palpable abnormality. This patient's information was entered into a reminder system with a target due date for their next mammogram. Electronically signed by: Hiwot Owen MD 03/13/2025 05:05 PM EDT
--- OUTSIDE RECORDS SUMMARY | 2025-03-03 13:59 | XMS_ITS | Clinical Summary ---
Author Organization [employer] Address [address] [facility] 7[address] [place] [address] Care Team Providers Care Seafood Preparer Name Role Phone Unavailable Primary Care Provider Unavailabl e Allergies No known active allergies Medications levothyroxine (Synthroid, Levoxyl) 25 MCG tablet TAKE 2 AND 1/2 TABLETS BY MOUTH EVERY DAY 05/05/2023 Active Encounters Date Type Department Care Team Description 12/02/2024 2:30 PM EDT Office Visit [facility] ADULT D[facility] [address] [place] [address] Miguel Rider DMD Vertical fracture of root of tooth (Primary Dx) from Last 3 Months Immunizations Immunization Administration Dates Next Due Moderna Covid-19 Vaccine 12+ 12/14/2021, 06/13/2021,11/02/2020,2020 Moderna Covid-19 Vaccine 6+ Bivalent 09/14/2022 Social History Tobacco Use Types Packs/Day Years Used Date Smoking Tobacco: Never Smokeless Tobacco: Never Tobacco Cessation:Counseling Given: Not Answered Comments Unknown Sex and Gender Information Value Date Recorded Sex Assigned at Female 09/14/2022 2:08 PM EST Legal Sex Female 2:03 PM EST Gender Identity Female 09/14/2022 2:08 PM EST Sexual Orientation Straight 09/14/2022 2: 28 PM EST Last Filed Vital Signs Vital Sign Reading Time Taken Comments Blood Pressure 122/78 12/02/2024 2:48 PM EDT Pulse - - Temperature - - Respiratory Rate - - Oxygen Saturation - - Inhaled Oxygen Concentration - - Weight - - Height - - Body Mass Index - - Plan of Treatment Health Maintenance Due Date Last Done Comments CT Colonography 1951 Colonoscopy 1951 Colorectal Cancer Screening 1951 Dental Oral Exam 1951 Dental Prophylaxis 1951 Dental X-Ray: Bitewings 1951 Dental X-Ray: Full Mouth 1951 Depression Screening 1951 FIT DNA/Cologuard 1951 FIT 1951 FOBT 1951 SDOH Screening 1951 Sigmoidoscopy 1951 Alcohol/Substance Use Screening 1963 Hepatitis C Screening 12/26/1969 Mammogram 1991 COVID-19 Vaccine ( season) 2024 09/14/2022, 12/14/2021, 06/13/2021, Additional history exists Influenza Vaccine (#1) 2025 , 05/15/2020, 09/13/2017, Additional history exists Tobacco Screening 12/02/2025 12/02/2024 RSV Patients and Patients Aged 60 years or older (1 - 1-dose 75+ series) 12/26/2026 DTaP/Tdap/Td Vaccines (4 - Td or Tdap) 01/18/2033 01/18/2023, 12/02/2020, 04/20/2011 Pneumococcal Vaccine: 50+ Years Completed 01/01/2019, 09/13/2017 Zoster Vaccines Completed 05/18/2019, 03/2019, 05/11/2016 HIB Vaccines Aged Out No longer eligi ble based on patient's age to complete this topic HPV Vaccines Aged Out No longer eligi ble based on patient's age to complete this topic Hepatitis A Vaccines Aged Out No long er eligible based on patient's age to complete this topic Hepatitis B Vaccines Aged Out No long er eligible based on patient's age to complete this topic IPV Vaccines Aged Out No longer eligi ble based on patient's age to complete this topic Meningococcal B Vaccine Aged Out No l onger eligible based on patient's age to complete this topic Meningococcal Vaccine Aged Out No james francois eligible based on patient's age to complete this topic RSV under 20 months Aged Out No longe r eligible based on patient's age to complete this topic Rotavirus Vaccines Aged Out No longer eligible based on patient's age to complete this topic Procedures Procedure Name Priority Date/Time Associated Diagnosis Comments 31 EXTRACTION, ERUPTED TOOTH OR EXPOSED ROOT (ELEVATION/FORCEPS REMOVAL) Routine 12/02/2024 2:30 PM EDT Vertical fracture of root of tooth 31 CROWN - PORCELAIN/CERAMIC Routine 12/02/2024 12:00 AM EDT from Last 3 Months Insurance MEDICARE [facility] - [facility]
--- OUTSIDE RECORDS SUMMARY | 2025-03-03 13:59 | XMS_ITS | Data Portability ---
Author Organization [place] - [facility], All[facility] Address [address] [place] [id number] Care Team Providers Care Tow Feeder Name Role Phone BONNIKKI Primary Care Provider Assessment No assessment recorded. Plan of Treatment Reminders Order Date Submit Date Provider Last Modified By Organization Details Last Modified Time Details Appointments None record ed. Lab None record ed. Referral None record ed. Procedures None record ed. Surgeries None record ed. Imaging None record ed. Medication Orders None record ed. Patient TargetsNo targets recorded. Patient InstructionsNo instructions recorded. Reason for Referral None Reported. Problems Name Problem SNOMED Code Status Onset Date Resolution Date Notes Provider Name and Address Organization Details Recorded Time Fracture of orbit 66562251 Active 025 NIKKI LAWS MD [address] [place] [address], [id number] , [facility] - [facility] 16:09:37 Problem Notes None recorded. Medical Equipment None Reported. Medications Name Sig Start Date Stop Date Status Note LastModified by Organization Details LastModified Time amoxicillin 500 mg capsule TAKE 1 CAPSULE BY MOUTH 3 TIMES A DAY FOR 8 DAYS 08/22 completed Not Available Not Available Not Available levothyroxin e 25 mcg tablet TAKE 2 AND 1/2 TABLETS BY MOUTH EVERY DAY active Not Available Not Available No t Available oxycodone-ac etaminophen 5 mg-325 mg tablet TAKE 1 TABLET BY MOUTH EVERY 6 HOURS NEEDED FOR PAIN active Not Available Not Available No t Available ibuprofen 600 mg tablet TAKE 1 TABLET BY MOUTH EVERY 6 HOURS NEEDED FOR FEVER OR PAIN active Not Available Not Available No t Available doxycycline hyclate 100 mg tablet TAKE 2 TABLETS BY MOUTH ONCE 08/22 completed Not Available Not Available Not Available amoxicillin 875 mg-potassium clavulanate 125 mg tablet TAKE 1 TABLET BY MOUTH TWICE A DAY 08/22 completed Not Available Not Available Not Available oxycodone 5 mg tablet TAKE 1 TABLET ORALLY EVERY 6 HOURS NEEDED FOR PAIN PARTIAL FILL UPON PATIENT REQUEST. active Not Available Not Available No t Available Vitals None Recorded Social History None recorded. Functional Status None recorded. Mental Status None recorded. Family History Nothing Reported. Medical History Condition Response Thyroid Problems Y Gynecological HistoryNo gynecological history recorded. Obstetrics History GPAL:G 0 P 0 0 0 0 Past Encounters Encounter ID Performer Location Encounter Start Date Encounter Closed Date Diagnosis/Indication Diagnosis SNOMED-CT Code Diagnosis ICD10 Code Diagnosis Note [id number] NIKKI LAWS MD [facility] [address] [phone] 08/22/2024 15:36:17 08/22/2024 16:17:40 Fracture of orbit 80469263 S02.85XA 73-year-ol d female presents today for evaluation after a fall with facial fractures which she had a CT scan consistent with left ZMC fracture. She has seen her eye doctor and her exam was normal.On my exam today, there is some resolving subconjunc tival hemorrhage . There is a small depression in the left zygomatic arch. There is no restrictio n of her interincis al opening, but she does note some discomfort in opening her mouth and she is currently on a soft diet.I reassured her that there was no evidence of brain bleed or skull fx on imaging. I do not see any need to repeat imaging. I do not see any contraindi cation to flight in the next couple weeks .She may benefit from using a decongesta nt such as Afrin (oxymetazo line) and/or pseudoephe drine. She should avoid blowing her nose for the next few weeks. We discussed that it takes about 6 weeks for the bones to heal. Based on the imaging, there may be some irritation of some of the muscles of masticatio n in the region of the zygomatic arch fracture and that would be my main concern regarding functional effects of her fracture. Thankfully it does not seem that she has any trismus.. I counseled her that surgery in this region is outside the scope of this office's practice.I would recommend ibuprofen for pain. Health Concerns Section Related Observation LastModified by Organization Detai ls LastModified Time None Recorded Concern Status LastModified by Organization Details LastModified Time None Recorded Advance Directives Directive None Recorded Payers Insurance Date Sequence Insurance Name Policy Number Policy Abbott Covered Member ID Abbott Member ID Guarantor Name 08/22/2024 1 MEDICARE B-[place]: [facility] [employer] Yehuda Rubio [id number] Yehuda Rubio 08/22/2024 2 [facility] [id number] Yehuda Rubio [id number] Yehuda Rubio Notes Date Note Type Note Provider Name and Address Organization Details Recorded Time 08/22/2024 text/html 73-year-old zahra leiva presents today for evaluation of facial fractures after a fall onto her face. We did let her know by phone before her visit that we do not surgically treat nonnasal bone facial fractures but she did want to come anyway to discuss her symptoms and her sinuses.She does have some pain over the rastafarian especially when she chews. She was recommended to be on a liquid diet.She did see her voice data communications engineer and her exam was within normal limits. Initially she had so much swelling that her eye was swollen shut. NIKKI LAWS MD [address] [place] [address], [place], [phone], [facility] - [facility] 08/23/2024 07:57:55 OBGyn Episode No OBEpisode recorded.
== END 2025-03-03 12:49 | disposition home or self-care (01) ==
LOC: HO.MAMMO 12:48
PROVIDERS: PCP Family Medicine; Visit Provider Family Medicine
DX: Z12.31 Encounter for screening mammogram for malignant neoplasm of breast (principal); M81.0 Age-related osteoporosis without current pathological fracture
CPT/HCPCS: 77063; 77067; 77080

== ENCOUNTER → 2025-03-03 13:00 | Outpatient (BNV) | payer MEDICARE, OTHER, SELFPAY | PROVIDERS: PCP Family Medicine; Visit Provider Radiology Diagnostic Radiology | DX: E28.39 Other primary ovarian failure (principal) | CPT/HCPCS: 77080 ==

== ENCOUNTER 2025-04-21 18:02 | Emergency (ER) | payer MEDICARE, OTHER, SELFPAY ==
[2025-04-21 18:16] VITALS: BP 129/69; PULSE 60; RESP 18; O2SAT 100; BMI 21.1
[2025-04-21 18:20] VITALS: BP 142/67; PULSE 58
--- OUTSIDE RECORDS SUMMARY | 2025-04-21 18:20 | XMS_ITS | Clinical Summary ---
Author Organization [facility] Address [address] [facility] [address] [place] [phone] Phone Care Team Providers Care Fence Erector Supervisor Name Role Phone Nancy De Oliveira MD Primary Care Provider Allergies No known active allergies Medications levothyroxine (SYNTHROID,LEVOTHR OID) 25 MCG tablet 05/05/2023 Active Social History Tobacco Use Types Packs/Day Years Used Date Smoking Tobacco: Never Assessed Education Answer Date Recorded Are you interested in more education? Not on alfreda e 05/06/2023 Are you concerned about learning? Not on file 05/06/2023 No 05/06/2023 No 05/06/2023 Digital Access Answer Date Recorded No 05/06/2023 No 05/06/2023 Reliable internet access at home? Not on file 05/06/2023 Device with a working camera? Not on file Comments Unknown Sex and Gender Information Value Date Recorded Sex Assigned at Not on file Legal Sex Female 10:00 PM EDT Gender Identity Not on file Sexual Orientation Not on file Last Filed Vital Signs Vital Sign Reading Time Taken Comments Blood Pressure 115/73 05/06/2023 1:06 PM EDT Pulse 69 05/06/2023 1:06 PM EDT Temperature 36.6 C (97.8 F) 05/06/2023 1:06 PM EDT Respiratory Rate 17 05/06/2023 1:06 PM EDT Oxygen Saturation 100% 05/06/2023 1:06 PM EDT Inhaled Oxygen Concentration - - Weight 52.2 kg (115 lb) 05/06/2023 1:06 PM EDT Height 160 cm (5' 3 ) 05/06/2023 1:06 PM EDT Body Mass Index 20.37 05/06/2023 1:06 PM EDT Plan of Treatment Health Maintenance Due Date Last Done Comments LIPID PANEL 1951 TSH LEVEL 1951 DEPRESSION SCREENING 1963 SMOKING Hx and SMOKELESS TOBACCO SCREENING 12/26/1964 HEPATITIS C SCREENING 12/26/1969 MAMMOGRAM 1991 COLOGUARD 12/26/1996 COLONOSCOPY 12/26/1996 COLORECTAL CANCER SCREENING 12/26/1996 FIT TEST 12/26/1996 FOBT 12/26/1996 SIGMOIDOSCOPY 12/26/1996 VIRTUAL COLONOSCOPY 12/26/1996 OSTEOPOROSIS SCREENING INITI AL (ONE-TIME) 12/26/2016 PNEUMOCOCCAL VACCINES (50+ years) (2 of 2 - PCV) 01/02/2020 01/01/2019 Adult Td,Tdap Booster 04/20/2021 04/20/2011 INFLUENZA VACCINE (#1) 2025 05/15/2020 COVID-19 VACCINE (2 - 2024-2 6 season) 2025 10/05/2020 RSV VACCINE (1 - 1-dose 75+ series) 12/26/2026 ZOSTER VACCINES Completed 05/18/2019, 01/25/2019, 05/11/2016 HEPATITIS A VACCINES Aged Out No long er eligible based on patient's age to complete this topic HIB VACCINES Aged Out No longer eligi ble based on patient's age to complete this topic MENINGOCOCCAL VACCINES (ACWY) Aged Out No longer eligible based on patient's age to complete this topic MENINGOCOCCAL VACCINES (B) Aged Out N o longer eligible based on patient's age to complete this topic Medical Devices Not on file Insurance MEDICARE PART A & B [facility] MEDICARE SUPPLEMENT MEDICARE PART A & B [facility] MEDICARE SUPPLEMENT MEDICARE PART A & B [id number] [place] [address] MEDICARE SUPPLEMENT MEDICARE PART A & B [facility] MEDICARE SUPPLEMENT MEDICARE PART A & B [employer] MEDICARE SUPPLEMENT MEDICARE PART A & B [employer] MEDICARE SUPPLEMENT Care Teams Fence Erector Supervisor Relationship Specialty Start Date End Date Nancy De Oliveira MD [email or web address] PCP - General Family Medicine 05/06/23 Additional Source Comments The information contained in this document represents components of the legal health record. It is not the complete legal health record.[facility]
--- OUTSIDE RECORDS SUMMARY | 2025-04-21 18:20 | XMS_ITS | Clinical Summary ---
Author Organization [employer] Address [address] [place] [address] [address] [place] [address] Care Team Providers Care Machine Shorthand Teacher Name Role Phone Unavailable Primary Care Provider Unavailabl e Allergies No known active allergies Medications levothyroxine (Synthroid, Levoxyl) 25 MCG tablet TAKE 2 AND 1/2 TABLETS BY MOUTH EVERY DAY 05/05/2023 Active Immunizations Immunization Administration Dates Next Due Moderna [...] on patient's age to complete this topic Insurance MEDICARE [facility]
--- OUTSIDE RECORDS SUMMARY | 2025-04-21 18:20 | XMS_ITS | Encounter Summary ---
Author Organization [employer] Address [address] [facility] [address] [place] [address] Care Team Providers Care Cash Shortage Investigator Name Role Phone Unavailable Primary Care Provider Unavailabl e Reason for Visit * Reason Onset Date Comments endo appt 10/24/2024 Encounter Details Date Type Department Care Team (Late st Contact Info) Description 10/24/2024 Telephone [facility] [address] [place], [place] [phone] Nahun Stubbs DDS [address] [place], [place] [phone] endo appt Social History Tobacco Use Types Packs/Day Years Used Date Smoking Tobacco: Never Assessed Comments Unknown Sex and Gender Information Value Date Recorded Sex Assigned at Female 09/14/2022 2:08 PM EST Legal Sex Female 2:03 PM EST Gender Identity Female 09/14/2022 2:08 PM EST Sexual Orientation Straight 09/14/2022 2: 28 PM EST documented as of this encounter Miscellaneous Notes * Telephone Encounter - Estella Condon - 10/24/2024 1:19 PM EST Patient states she was supposed to come in August but unable to due to a skull fracture injury andher medical provider advised against drilling until she was healed. She is past her injury and is looking to try to come for November. Patient has bee informed that message will be sent to office however no guarantee on month or date that she will be scheduled. Patient understood DR documented in this encounter Plan of Treatment Not on file documented as of this encounter Visit Diagnoses Not on filedocumented in this encounter
--- NOTE | 2025-04-21 18:21 | ECG_ITS ---
Test Reason : SYNCOPE Blood Pressure : */* mmHG Vent. Rate : 58 BPM Atrial Rate : 58 BPM P-R Int : 178 ms QRS Dur : 92 ms QT Int : 452 ms P-R-T Axes : 59 -1 19 degrees QTcB Int : 443 ms Sinus bradycardia Otherwise normal ECG When compared with ECG of 16-Aug-2024 18:46, No significant change was found Referred By: Tiara Davidson Electronically Signed By: Trevon Couch
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
--- NOTE | 2025-04-21 18:25 | PC.NURSE ---
Pt refusing IV fluids, MD Davidson aware.
[2025-04-21 18:26] VITALS: BP 139/71; PULSE 59
[2025-04-21 18:27] VITALS: BP 138/69; PULSE 61
[2025-04-21 18:54] LABS: MANUAL DIFF FLAG NO
[2025-04-21 19:11] LABS: Alanine Aminotransferase 9 U/L (0-31); Albumin Level 4.3 g/dL (3.5-5.0); Alkaline Phosphatase 110 U/L (39-117); Anion Gap 13 (12-20); Aspartate Amino Transferase 31 U/L (5-31); Blood Urea Nitrogen 19 mg/dL (9-16); Calcium 9.1 mg/dL (8.4-10.2); Carbon Dioxide 25 mmol/L (22-29); Chloride 105 mmol/L (96-108); Creatinine Clr Calc Pharmacy 44.5; Estimated Glomerular Filt Rate 59; Lipase 34 U/L (8-78); Potassium 3.7 mmol/L (3.3-5.1); Sodium 139 mmol/L (135-145); Total Protein 7.5 g/dL (6.5-8.0)
[2025-04-21 19:13] LABS: Hematocrit 35.3 % (37.0-47.0); Hemoglobin 11.7 g/dl (12.0-16.0); Imm Gran Abs Auto 0.02 X10*3/uL (0.00-0.03); Imm Gran Pct Auto 0.2 % (0.0-0.4); Lymphocytes Absolute Auto 2.2 X10*3/uL (1.2-4.9); Mean Corpuscular HGB Conc 33.1 g/dl (31.0-35.0); Mean Corpuscular Hemoglobin 29.0 pg (27.0-33.0); Mean Corpuscular Volume 87.6 fL (80.0-98.0); NRBC Abs Auto 0.000 X10*3/uL (0.0-0.012); NRBC Pct Auto 0.0 /100WBC (0.0-0.2); Platelet Count 320 X10*3/uL (160-400); Red Blood Count 4.03 X10*6/uL (4.20-5.50); White Blood Count 8.1 X10*3/uL (4.8-10.8)
[2025-04-21 19:17] LABS: B Type Natriuretic Peptide 125 pg/mL (<100)
[2025-04-21 19:21] LABS: Troponin-I High Sensitivity < 2.7 ng/L (<3.5-17.0)
[2025-04-21 20:03] VITALS: BP 132/62; PULSE 72; RESP 14; TEMP 36.6; O2SAT 98
== END 2025-04-21 20:04 | disposition home or self-care (01) ==
PROVIDERS: Emergency Provider Emergency Medicine; PCP Family Medicine
DX: R42 Dizziness and giddiness (principal); R55 Syncope and collapse; A05.9 Bacterial foodborne intoxication, unspecified; R11.0 Nausea
CPT/HCPCS: 36415; 80048; 80076; 83690; 83880; 84484; 85025; 93005; 99283; 99284

== ENCOUNTER → 2025-04-21 18:21 | Outpatient (BNV) | payer MEDICARE, OTHER, SELFPAY | PROVIDERS: Emergency Provider Emergency Medicine; PCP Family Medicine; Visit Provider Internal Medicine Cardiovascular Disease | DX: R00.1 Bradycardia, unspecified (principal) | CPT/HCPCS: 93010 ==

== ENCOUNTER 2025-05-06 12:00 | Outpatient (AMB) | payer MEDICARE, OTHER, SELFPAY ==
--- NOTE | 2025-05-06 12:10 | MHC.OFFVIS ---
Vital Signs 05/06/25 12:14 Height 5 ft 2 in Weight 112 lb BMI 20.5 BP 96/57 L Blood Pressure Location Lt brachial Position Sitting Pulse 65 Pulse Oximetry (%) 96 Oxygen Delivery Method Room Air Intake Visit Reasons: colo screening Intake Note: Patient new consult for 3rd pre Colonoscopy screening. Patient cc: chronic constipation, denies any other GI issues for today visit. Catering Operations Manager Required: No Accompanied by: Self / Same As Patient Allergies No Known Allergies Allergy (Verified 04/21/25 18:18) HPI HPI colo screening: Details: 74 year old? female with past medical history of hypothyroidism is here today for pre colonoscopy screening.? Patient was sent to us by her PCP.? Last colonoscopy in [address] Begum. Patient had normal colonoscopy.? Patient denies any gastrointestinal symptoms in the past or at present.? However patient does report to have constipation. Patient has been dealing with that for a long time. Denies any personal or family history of gastrointestinal disease, colon polyps, or CRC.? Denies history of difficulty with sedation or anesthesia in the past.? Negative for history of sleep apnea.? Denies any history of cardiac, renal, pulmonary, or hepatic disease.?? No history of infectious? diseases like hepatitis A, B, C, HIV or tuberculosis.? Patient is not on any anticoagulation PFSH Medical History (Updated 04/22/25 @ 00:00 by Aminah Cespedes) Hypothyroidism Surgical History (Updated 05/06/25 @ 12:11 by Florencia Balderrama) Hx of colonoscopy Social History Household Members: None Housing: House Do you presently have visiting nurse or other home services: No Patient Tobacco Use Status: Never used Tobacco Substance Use Type: Caffiene service: No Review of Systems Const Denies weight gain and Denies weight loss ENT Reports no additional complaints, Denies dysphagia and Denies odynophagia Card Reports no additional complaints Resp Reports no additional complaints GI Denies abdominal pain, Denies belching, Denies melena, Denies bloating, Denies change in bowel habits, Reports constipation, Denies dysphagia, Denies excessive flatus, Denies dyspepsia, Denies heartburn, Denies diarrhea, Denies loose stools, Denies nausea, Denies odynophagia and Denies vomiting Musc Reports no additional complaints Neuro Reports no additional complaints Psych Reports no additional complaints Endo Reports no additional complaints Physical Exam Const General: healthy appearing, no acute distress and well developed Nutritional Appearance: well nourished Orientation/consciousness: patient oriented x3 Resp Effort & Inspection: normal respiratory effort, able to speak in complete sentences, no tracheal deviation and symmetric chest movement Auscultation: clear to auscultation bilaterally Cardio Rate: regular rate GI Inspection: Yes normal to inspection and No distended Palpation (GI): Soft to palpation, not firm, nontender and No hepatosplenomegaly present Auscultation: normal bowel sounds General: Yes no CVA tenderness Back/Spine/Pelvis Back: no CVA tenderness Skin General skin exam: elasticity normal, turgor normal and dry skin Neuro General: patient oriented x3 Psych Appearance: grossly normal Mental Status: mental status grossly normal Assessment & Plan Assessment & Plan (1) Screen for colon cancer: Code(s): Z12.11 - Encounter for screening for malignant neoplasm of colon Plan Patient denies any cardiac or respiratory symptoms.? Occasional constipation. Patient reports that she has been dealing with this for a long time. Denies any issues with anesthesia in the past.? Denies any history of sleep apnea.? No history infectious diseases in the past or present.? Not on any anticoagulation therapy.? No family or personal history of colon cancer or polyps.? Patient denies melena, hematochezia, unintentional weight loss or ribbon like stools.? Discussed at length the pre-procedure,? prep, diet & medications as well as what to expect prior, during and after the procedure.?? Stressed the importance of good bowel prep.? Recommended the use of Vaseline or Calmoseptine OTC & baby wipes with bowel movements to promote comfort.? ?Patient verbalizes understanding and agrees to plan of care.? She was given the opportunity to ask questions and all questions answered.? We will see her after the procedure.? Medications: New polyethylene glycol 3350 (Miralax) As directed by gastroenterology department at [facility] 238 grams PO ONCE 238 grams 0RF Z12.11 - Encounter for screening for malignant neoplasm of colon bisacodyl (Dulcolax (bisacodyl)) Start taking 2 tablet every night 7 days before the procedure and 1 day before procedure take 4 tablets at noon time followed by MiraLax prep 10 mg (2 x 5 mg) PO BEDTIME 16 tabs 0RF Z12.11 - Encounter for screening for malignant neoplasm of colon Coding Level of Care Code New Pt Level 3 (24152) Diagnoses Screen for colon cancer Z12.11 Time Spent (min) 40 Comment 30 minutes spent with patient and additional 10 minutes spent reviewing her records
[2025-05-06 12:14] VITALS: BP 96/57; PULSE 65; O2SAT 96; BMI 20.5
--- OUTSIDE RECORDS SUMMARY | 2025-05-06 15:31 | XMS_ITS | Clinical Summary ---
Author Organization [employer] Address [address] [place] [address] [address] [place] [address] Care Team Providers Care Supervisor Coating Name Role Phone Unavailable Primary Care Provider [...] 12/26/1969 Mammogram 1991 COVID-19 Vaccine ( season) 2025 09/14/2022, 12/14/2021, 06/13/2021, Additional history exists Influenza [...] to complete this topic Insurance MEDICARE [facility] Address: [address] [place] [address] DENTAL - [facility]
--- OUTSIDE RECORDS SUMMARY | 2025-05-06 15:32 | XMS_ITS | Clinical Summary ---
Author Organization [facility] Address [address] [place] [id number] Phone Care Team Providers Care Link Machine Operator Name Role Phone Nancy De Oliveira MD [...] file Insurance MEDICARE PART A & B [facility] [employer] MEDICARE SUPPLEMENT MEDICARE PART A & B [facility] [employer] MEDICARE SUPPLEMENT MEDICARE PART A & B [id number] [place] [address] MEDICARE SUPPLEMENT MEDICARE PART A & B [facility] [employer] MEDICARE SUPPLEMENT MEDICARE PART A & B [employer] MED[employer]ARE SUPPLEMENT MEDICARE PART A & B [employer] MEDICARE SUPPLEMENT Care Teams Link Machine Operator Relationship Specialty Start Date End Date Nancy De Oliveira MD [email or web address] PCP - General Family Medicine 05/06/23 Additional Source Comments The information contained in this document represents components of the legal health record. It is not the complete legal health record.[facility]
--- OUTSIDE RECORDS SUMMARY | 2025-05-06 15:32 | XMS_ITS | Encounter Summary ---
Author Organization [employer] Address [address] [facility] [address] [place] [address] Care Team Providers Care Junior Account Manager Name Role Phone Unavailable Primary Care Provider Unavailabl e Reason for Visit * Reason Onset Date Comments endo appt 10/24/2024 Encounter Details Date Type Department Care Team (Late st Contact Info) Description 10/24/2024 Telephone [facility] [address] [place], [place] [id number] Nahun Stubbs DDS [address] [place], [place] [phone] endo appt Social History Tobacco Use Types [...]
== END 2025-05-06 12:57 | disposition home or self-care (01) ==
LOC: HO.HGI 12:01
PROVIDERS: PCP Family Medicine; Visit Provider Nurse Practitioner Family
DX: Z01.818 Encounter for other preprocedural examination (principal); Z12.11 Encounter for screening for malignant neoplasm of colon
CPT/HCPCS: 99024

== ENCOUNTER → 2025-05-06 12:00 | Outpatient (BNVA) | payer MEDICARE, OTHER, SELFPAY | PROVIDERS: PCP Family Medicine; Visit Provider Nurse Practitioner Family | DX: Z12.11 Encounter for screening for malignant neoplasm of colon (principal) | CPT/HCPCS: 99212 ==